=== PATIENT | male | born 1960 | race Caucasian/White ===

== ENCOUNTER 2021-01-18 05:28 | Emergency (ER) | payer OTHER, SELFPAY ==
--- NOTE | ~2021-01-18 | US_ITS ---
US scrotum doppler INDICATION: Testicular pain TECHNIQUE: Testicular sonogram utilizing grayscale and color Doppler FINDINGS: The testes are normal in size and appearance. No focal lesions are seen. The right testes measures 3.9 x 2.8 x 3.2 cm centimeters, and the left testis measures 3.5 x 1.8 x 2.7 cm cm. There is normal vascular flow to both testes. The right and left epididymides appear normal. Small right hydrocele. There is a left varicocele. IMPRESSION: 1. Left varicocele. 2: Small right hydrocele. Reviewed, dictated and finalized at location A.
--- NOTE | ~2021-01-18 | CT_ITS ---
EXAMINATION: CT lumbar spine [facility] EXAM DATE: 01/18/2021 08:28 INDICATION: Back pain. Injury. TECHNIQUE: Spiral CT lumbar spine was performed without contrast. Axial, coronal and sagittal imag es were reviewed. The dose-length product (DLP) for this examination was 1480 mGy-cm (for this and a bdomen and pelvis scan performed at same time). The exposure was tailored according to patient size ( auto mA exposure control), and iterative reconstruction (ASIR) was used as additional dose reduction technique. Comparison is made to prior examination from 01/18/2021. FINDINGS: Congenitally mid lumbar spinal canal. There are no acute fractures identified. No spondylol ysis. There is moderate to severe disc disease at L5-S1 with 2 mm retrolisthesis. There is 4 mm scler otic focus in S1 which is likely bone island. Mild mid lumbar disc disease. No endplate erosive rivers e. No hydronephrosis. Level by level evaluation: T11-12: There is a mild diffuse disc bulge. Facet arthropathy: Minimal. Neural foraminal stenosis: No stenosis. Central canal stenosis: No stenosis. T12-L1: Disc does not extend beyond the endplate margin. Facet arthropathy: None. Neural foraminal stenosis: No stenosis. Central canal stenosis: No stenosis. L1-L2: There is a mild diffuse disc bulge. Facet arthropathy: Mild. Neural foraminal stenosis: No stenosis. Central canal stenosis: Mild. L2-L3: There is a mild diffuse disc bulge. Facet arthropathy: Mild to moderate. Neural foraminal stenosis: Mild bilateral. Central canal stenosis: Mild to moderate, superimposed on congenital. L3-L4: There is a mild diffuse disc bulge. Facet arthropathy: Mild to moderate. Neural foraminal stenosis: Mild to moderate left, mild right. Central canal stenosis: Moderate to severe superimposed on congenital. L4-L5: There is a mild to moderate diffuse disc bulge. Facet arthropathy: Severe left, moderate right. Neural foraminal stenosis: Moderate left, mild to moderate right. Central canal stenosis: Severe. L5-S1: There is a mild diffuse disc bulge. Facet arthropathy: Moderate. Neural foraminal stenosis: Moderate to severe right, moderate left. Central canal stenosis: Moderate superimposed on congenital. 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 No acute findings. Reviewed, dictated and finalized at location B. IMPRESSION: Congenital lumbar central canal stenosis with superimposed spondylo sis causing severe stenosis at L4-5, moderate to severe at L3-4. No acute findi ngs.
--- NOTE | ~2021-01-18 | CT_ITS ---
EXAMINATION: CT abdomen pelvis w con DATE: 01/18/2021 07:27 INDICATION: Low back pain. Groin pressure. TECHNIQUE: Computed tomography (CT) of the abdomen and pelvis was performed with 100 cc Omnipaque 350 intravenous contrast. The dose-length product was 1480.33 mGy-cm. Automated exposure control and ite rative reconstruction technique were employed. COMPARISON: None. FINDINGS: Lung bases are unremarkable. Heart size is normal. No significant pleural or pericardial ef fusion. The liver, spleen, pancreas, adrenal glands and kidneys are unremarkable. Gallbladder is present. Non obstructive bowel gas pattern. No free air or free fluid. Colonic diverticulosis without evidence for diverticulitis. No significant vascular abnormality. No lymphadenopathy. Small fat-containing umbili marilou hernia. Moderate spondylosis at L5-S1. IMPRESSION: 1. No acute abdominal abnormality. Reviewed, dictated and finalized at location A.
[2021-01-18 05:32] VITALS: BP 156/77; PULSE 63; RESP 16; TEMP 36.1; O2SAT 98
--- NOTE | 2021-01-18 05:48 | ED.MALEGU ---
HPI - Male Genitourinary General Chief complaint: Urogenital-Male <Jessica Chua MD - Last Filed: 01/18/21 08:08> Stated complaint: low back/ groin/ abd pain <Jessica Chua MD - Last Filed: 01/18/21 08:08> Time Seen by Provider: 01/18/21 05:47 <Jessica Chua MD - Last Filed: 01/18/21 08:08> Source: patient <Jessica Chua MD - Last Filed: 01/18/21 08:08> Mode of arrival: ambulatory <Jessica Chua MD - Last Filed: 01/18/21 08:08> Limitations: no limitations <Jessica Chua MD - Last Filed: 01/18/21 08:08> History of Present Illness HPI Narrative: Patient is a 60-year-old male with a history of BPH who presents for evaluation of lower groin pain, back pain and difficulty with urination. Patient reports general malaise and chills without fever. He denies nausea, vomiting or upper abdominal pain. He reports urinary hesitancy without dysuria. Patient states he has been compliant with his Flomax. He has a history of pain such as this off and on over the past month. Denies any history of nephrolithiasis. Denies any history of urinary retention. Pain is dull, aching in nature, at times worse with movement. No recent falls or injury. No recent heavy lifting. Patient denies penile pain, he does report mild pressure in his testicles. No discharge or swelling. Patient has a history of lumbar disc disease, states this feels different than his typical back pain. He denies any saddle anesthesia. No urinary incontinence. No focal weakness. <Jessica Chua MD - Last Filed: 01/18/21 08:08> Related Data Home medications: Home Medications Medication Instructions Recorded Confirmed apixaban [Eliquis] mg 01/18/21 atorvastatin 01/18/21 tamsulosin mg PO 01/18/21 <Jessica Chua MD - Last Filed: 01/18/21 08:08> Allergies/Adverse reactions: Allergies Allergy/AdvReac Type Severity Reaction Status Date / Time No Known Allergies Allergy Verified 01/18/21 06:49 <Jessica Chua MD - Last Filed: 01/18/21 08:08> Review of Systems Review of Systems: Narrative: CONSTITUTIONAL: Denies fever, reports chills EYES: Denies visual changes, redness, or discharge. ENT: Denies rhinorrhea, congestion, sore throat, or otalgia. CARDIOVASCULAR: Denies chest pain, palpitations, or edema. RESPIRATORY: Denies cough or dyspnea. GASTROINTESTINAL: Reports groin pain, denies nausea or vomiting GENITOURINARY: Denies dysuria or hematuria. SKIN: Denies rash or itching. MUSCULOSKELETAL: Reports lower back pain NEUROLOGIC: Denies headache, numbness, or weakness. <Jessica Chua MD - Last Filed: 01/18/21 08:08> [facility] Social History Social History: Social History (Updated 01/18/21 @ 05:54 by Jessica Chua MD) Smoking status: Never smoker Alcohol intake: never Substance use: never Living arrangements: with family Gender identity (if verbalized by the patient): Male <Jessica Chua MD - Last Filed: 01/18/21 08:08> Exam Narrative: Exam Narrative: GENERAL: Awake, alert, conversant HEAD: Normocephalic, atraumatic. EYES: PERRLA and EOMI. ENT: Nares clear, no rhinorrhea or epistaxis. Mucous membranes moist. NECK: Supple. CHEST: No respiratory distress, breathing even and non labored HEART: Regular rate, sinus rhythm ABDOMEN: Abdomen is protuberant, mild distention in the lower abdomen with tenderness in the suprapubic area with guarding. No rebound, nonrigid. No fluid wave. No flank tenderness bilaterally. EXTREMITIES: Normal range of motion. No edema. SKIN: Warm, dry, no rash. NEURO:No focal deficits. Alert and oriented x3. Patient is ambulatory with a narrow base, steady gait. <Jessica Chua MD - Last Filed: 01/18/21 08:08> Course Reevaluation(s) Reevaluation #1: Currently patient main complaint is lower back pain which is worse with certain position and movement, better laying down. History of intermittent lower back pain. W
[2021-01-18 06:28] LABS: Add Urine Microscopic? NO; Appearance Urine Clear (Clear); Bilirubin Urine Negative (Negative); Blood Urine Negative (Negative); Color Urine Yellow (Yellow); Glucose Urine UA Negative (Negative); Ketones Urine Negative (Negative); Leukocyte Esterase Ur Negative LEU/UL (Negative); Nitrate Urine Negative (Negative); Protein Urine Negative (Negative); Urobilinogen Urine Negative mg/dL (<2.0)
[2021-01-18] MEDS: SODIUM CHLORIDE 0.9% IV 500 ML 999 ML IV CONT (06:51)
[2021-01-18] MEDS: ONDANSETRON INJ 4 MG/2 ML VIAL IV PUSH ×2 (06:52→09:38)
[2021-01-18] MEDS: MORPHINE SULFATE (*CRX) 4 MG/ML INJ IV PUSH ×2 (06:53→08:10)
[2021-01-18 07:07] LABS: Basophils Percent Auto 0.6 % (0.2-1.2); Eosinophils Absolute Auto 0.2 K/mm3 (0-0.3); Eosinophils Percent Auto 4.6 % (0-4.4); Hematocrit 42.4 % (42.0-52.0); Hemoglobin 14.6 g/dL (14.0-18.0); Immature Granulocyte Absolute 0.02 K/mm3 (0.00-0.031); Immature Granulocyte Percent A 0.4 % (0-0.5); Lymphocytes Absolute Auto 1.25 K/mm3 (0.9-3.2); Lymphocytes Percent Auto 24.9 % (18.3-44.2); Mean Corpuscular HGB Conc 34.4 g/dl (32-36); Mean Corpuscular Hemoglobin 30.9 pg (26-34); Mean Corpuscular Volume 89.6 fl (80-100); Monocytes Absolute Auto 0.5 K/mm3 (0.1-0.6); Monocytes Percent Auto 9.2 % (2.6-8.5); Neutrophils Percent Auto 60.3 % (45.5-73.1); Platelet Count Result 167 k/mm3 (150-375); Red Blood Count 4.73 M/mm3 (4.6-6.20); Red Cell Distribution Width 12.9 % (11.5-14.5)
[2021-01-18 07:15] LABS: Alanine Aminotransferase 19 U/L (4-50); Albumin Level 3.5 g/dL (3.5-5.1); Alkaline Phosphatase 69 U/L (38-126); Anion Gap 6 mmol/L (8-16); Aspartate Amino Transferase 24 U/L (17-59); Bilirubin,Total 0.4 mg/dL (0.2-1.3); Blood Urea Nitrogen 18 mg/dL (9-20); Calcium 8.5 mg/dL (8.4-10.2); Carbon Dioxide 27 mmol/L (22-30); Chloride 108 mmol/L (98-107); Estimated CRCL calculation 85 ml/min; Estimated Glomerular Filt Rate > 60; Glucose 104 mg/dL (65-110); Potassium 4.3 mmol/L (3.4-5.0); Sodium 141 mmol/L (137-145)
[2021-01-18 07:20] LABS: Estimated CRCL calculation 85 ml/min; Estimated Glomerular Filt Rate > 60
[2021-01-18 07:27] VITALS: BP 136/90; PULSE 56; RESP 18; O2SAT 96
[2021-01-18] MEDS: HYDROmorphone HCL INJ (*CRX) 1 MG/ML SYR 0.5 MG IV PUSH (09:38)
[2021-01-18 09:47] VITALS: BP 137/87; PULSE 60; RESP 18; O2SAT 97
== END 2021-01-18 09:47 | disposition home or self-care (01) ==
PROVIDERS: Emergency Medicine; Emergency Provider Emergency Medicine; PCP Internal Medicine
DX: M47.816 Spondylosis without myelopathy or radiculopathy, lumbar region (principal); M48.061 Spinal stenosis, lumbar region without neurogenic claudication; I86.1 Scrotal varices; N43.3 Hydrocele, unspecified
CPT/HCPCS: 36415; 72131; 74177; 76870; 80053; 81003; 85025; 93976; 96361; 96374; 96375; 96376; 99284; J1170; J2270; J2405; J7040; Q9967

== ENCOUNTER 2022-03-31 11:16 | Observation (INO) | payer OTHER, SELFPAY ==
[2022-03-31] VITALS (32 sets, daily range): BP systolic 114–160; BP diastolic 72–94; PULSE 39–65; RESP 10–21; TEMP 36.3–36.6; O2SAT 91–100; BMI 39.7
--- NOTE | ~2022-03-31 | US_ITS ---
EXAMINATION: US carotid duplex BI DATE: 04/01/2022 09:34 INDICATION: Vertigo TECHNIQUE: Grayscale, color Doppler, and pulsed Doppler images of the cervical carotid arteries were obtained. The degree of vessel stenosis is placed in one of the following categories: normal, <50%, 5 0-69%, >=70% but less than near-occlusion, near-occlusion, or total occlusion. Note that percent sten osis relative to normal distal artery lumen diameter is indirectly measured from velocity measurement s as described by Marco, et al. Radiology 2003; 229:340-346. Notes: Normal: Peak systolic velocity <125 centimeters/sec and no plaque <50%. Peak systolic velocity <125 ( EDV <40; ICA/CCA PSV ratio <2.0; used these factors only a tandem lesions or low cardiac output or co ntralateral disease) 50-69 %: PSV 125-230 (EDV 40-100; ratio 2-4) >= 70% but less than near occlusion: PSV greater than 230 (EDV > 100; ratio> 4.0) Near Occlusion: PSV that is variable; markedly narrowed lumen Occlusion: Absent flow on color/spectral Doppler and no lumen on brown scale. COMPARISON: None. FINDINGS: RIGHT: The right common carotid artery (CCA) peak systolic velocity (PSV) is 103 cm/s. The right internal ca rotid artery (ICA) PSV is 85 cm/s. The right ICA end-diastolic velocity (EDV) is 13 cm/s. The right I CA/CCA PSV ratio is 0.8. The external carotid artery (ECA) PSV is 102 cm/s. There is antegrade flow i n the right vertebral artery. LEFT: The left CCA PSV is 118 cm/s. The left ICA PSV is 63 cm/s. The left ICA EDV is 14 cm/s. The left ICA/ CCA PSV ratio is 0.5. The ECA PSV is 80 cm/s. There is antegrade flow in the left vertebral artery. IMPRESSION: 1. Less than 50% stenosis in the right internal carotid artery by sonographic criteria. 2. Less than 50% stenosis in the left internal carotid artery by sonographic criteria. Reviewed, dictated and finalized at location A. IMPRESSION: 1. Less than 50% stenosis in the right internal carotid artery by sonographic josh darling. 2. Less than 50% stenosis in the left internal carotid artery by sonographic amol rankin.
--- NOTE | ~2022-03-31 | XR_ITS ---
EXAMINATION: XR chest 2V DATE: 03/31/2022 12:03 INDICATION: Arm and neck pain TECHNIQUE: AP and lateral views of the chest are obtained. COMPARISON: 07/16/2016 FINDINGS: The lung volumes are low. No pleural effusion or pneumothorax. The cardiomediastinal silhou ette is normal. The visualized bones and soft tissues are unremarkable. IMPRESSION: 1. No acute cardiopulmonary abnormality. Reviewed, dictated and finalized at location A.
--- NOTE | ~2022-03-31 | MR_ITS ---
EXAMINATION: MR cervical spine wo con DATE: 04/01/2022 09:19 INDICATION: Left neck pain. Left-sided headache. TECHNIQUE: Magnetic resonance imaging (MRI) of the cervical spine was performed without intravenous c ontrast. Sequences included sagittal T2-weighted FSE, sagittal T2-weighted FS FSE, sagittal T1-weight ed FSE, axial MERGE, and axial T2-weighted FSE. COMPARISON: None FINDINGS: There is 3 degrees levocurvature of cervicothoracic spine. Vertebral body heights are denisha l. There is mildly decreased disc height at C3-C4 and C4-C5 and severely decreased disc height at C5- C6. The spinal cord demonstrates increased T2-weighted signal intensity from C3-C4 through C5-C6, wor st at C5-C6 where the cord is small, consistent with myelomalacia. The following disc levels are spec ifically discussed: C2-C3: The disc does not extend beyond the endplate margin. There is mild right uncovertebral joint o steoarthritis. There is mild bilateral facet joint osteoarthritis. There is mild right neural foramin al stenosis. There is no central canal stenosis. C3-C4: The disc is bulging with superimposed right central extrusion. There is mild bilateral uncover tebral joint osteoarthritis. There is severe right and mild left facet joint osteoarthritis. There is mild bilateral neural foraminal stenosis. There is mild central canal stenosis with ventral indentat ion of the spinal cord. C4-C5: The disc is bulging. There is moderate bilateral uncovertebral joint osteoarthritis. There is severe bilateral facet joint osteoarthritis. There is mild bilateral neural foraminal stenosis. There is moderate central canal stenosis with ventral and dorsal indentation of the cord. C5-C6: There is a central extrusion. There is severe bilateral uncovertebral joint osteoarthritis. Th ere is mild bilateral facet joint osteoarthritis. There is moderate bilateral neural foraminal stenos is. There is severe central canal stenosis with ventral and dorsal indentation of the cord. C6-C7: The disc is bulging. There is mild right and moderate left uncovertebral joint osteoarthritis. There is severe bilateral facet joint osteoarthritis. There is mild bilateral neural foraminal steno sis. There is mild central canal stenosis. C7-T1: The disc does not extend beyond the endplate margin. There is no uncovertebral joint osteoarth ritis. There is severe bilateral facet joint osteoarthritis. There is mild bilateral neural foraminal stenosis. There is no central canal stenosis. IMPRESSION: 1. Myelomalacia from C3-C4 through C5-C6, worst at C5-C6. 2. Severe cervical spondylosis. Reviewed, dictated and finalized at location E.
--- NOTE | ~2022-03-31 | MR_ITS ---
EXAMINATION: MR brain/brain stem wo con DATE: 04/01/2022 09:19 INDICATION: Vertigo. Headache. TECHNIQUE: Magnetic resonance imaging (MRI) of the brain and brainstem was performed without intraven ous contrast. Sequences included sagittal and axial T1-weighted SE, axial diffusion-weighted FS SE, a xial T2*-weighted GRE, axial T2-weighted FLAIR Propeller, and axial T2-weighted Propeller. Apparent d iffusion coefficient (ADC) maps were created. COMPARISON: No prior studies for comparison. . FINDINGS: No acute hemorrhage, infarction, mass or mass effect. No ventriculomegaly or midline shift. Structures of the posterior fossa including 7/8th cranial nerve complexes are normal. There are scat tered mild periventricular and subcortical white matter changes, most likely related to small vessel ischemic disease (microangiopathy). Paranasal sinuses and mastoids are pneumatized. Orbits are symmetric without disconjugate gaze. Midl ine sagittal images demonstrate a normal corpus callosum and craniovertebral junction. No abnormality of the sella turcica. IMPRESSION: 1: No acute intracranial abnormality. 2: Chronic age-related findings. Reviewed, dictated and finalized at location A.
--- NOTE | 2022-03-31 11:26 | ECG_ITS ---
Measurements Intervals [place] Rate: 46 P: 3 NM: 152 QRS: -16 QRSD: 90 T: 12 QT: 446 QTc: 392 Interpretive Statements SINUS BRADYCARDIA POOR R-WAVE PROGRESSION OTHERWISE NORMAL ECG NO PREVIOUS ECG AVAILABLE FOR COMPARISON Electronically Signed On 03-31-2022 13:51:11 CDT by Tj Davis M.D.
[2022-03-31 11:38] LABS: Basophils Percent Auto 0.7 % (0.2-1.2); Eosinophils Absolute Auto 0.1 K/mm3 (0-0.3); Eosinophils Percent Auto 1.6 % (0-4.4); Hematocrit 44.9 % (42.0-52.0); Hemoglobin 15.1 g/dL (14.0-18.0); Immature Granulocyte Absolute 0.01 K/mm3 (0.00-0.031); Immature Granulocyte Percent A 0.2 % (0-0.5); Lymphocytes Absolute Auto 1.93 K/mm3 (0.9-3.2); Lymphocytes Percent Auto 31.5 % (18.3-44.2); Mean Corpuscular HGB Conc 33.6 g/dl (32-36); Mean Corpuscular Hemoglobin 30.4 pg (26-34); Mean Corpuscular Volume 90.3 fl (80-100); Mean Platelet Volume 9.5 fl (7.4-10.4); Monocytes Absolute Auto 0.5 K/mm3 (0.1-0.6); Monocytes Percent Auto 7.7 % (2.6-8.5); Neutrophils Absolute Auto 3.6 K/mm3 (1.3-6.7); Neutrophils Percent Auto 58.3 % (45.5-73.1); Platelet Count Result 198 k/mm3 (150-375); Red Blood Count 4.97 M/mm3 (4.6-6.20); Red Cell Distribution Width 12.6 % (11.5-14.5); White Blood Count 6.1 K/mm3 (4.5-10.0)
[2022-03-31 11:48] LABS: INR 1.3; Partial Thromboplastin Time 31.5 SECONDS (22.3-36.8); Prothrombin Time 15.8 Seconds (11.1-14.7)
[2022-03-31 12:00] LABS: Alanine Aminotransferase 23 U/L (6-50); Albumin Level 4.3 g/dL (3.5-5.1); Alkaline Phosphatase 75 U/L (38-126); Anion Gap 10 mmol/L (8-16); Aspartate Amino Transferase 33 U/L (17-59); Bilirubin,Total 0.7 mg/dL (0.2-1.3); Blood Urea Nitrogen 16 mg/dL (9-20); Calcium 8.8 mg/dL (8.4-10.2); Carbon Dioxide 28 mmol/L (22-30); Chloride 102 mmol/L (98-107); Estimated CRCL calculation 84 ml/min; Estimated Glomerular Filt Rate > 60; Glucose 91 mg/dL (65-110); Lipase 62 U/L (23-300); Potassium 4.4 mmol/L (3.4-5.0); Sodium 140 mmol/L (137-145)
[2022-03-31 12:11] LABS: Troponin I < 0.012 ng/mL (0.000-0.034)
[2022-03-31 13:54] LABS: SARS-CoV-2 RNA PCR Negative
--- NOTE | 2022-03-31 14:35 | ED.GENADULT ---
HPI - General Adult General Chief complaint: Dizziness Stated complaint: dizziness and neck pain Time Seen by Provider: 03/31/22 11:26 History of Present Illness HPI narrative: 61-year-old male presents for evaluation of lightheadedness presyncope. Patient states that for the past 24 hours he has felt dizzy which worsens with exertion. He has felt this once before and was seen by many doctors but was never given an answer as to what was causing it. Of note patient is noted to be bradycardic on arrival. Related Data Home Medications Medication Instructions Recorded Confirmed apixaban 5 mg tablet (Eliquis) mg 01/18/21 atorvastatin 40 mg tablet 01/18/21 tamsulosin 0.4 mg capsule mg PO 01/18/21 meclizine 25 mg tablet mg 03/31/22 Allergies Allergy/AdvReac Type Severity Reaction Status Date / Time No Known Allergies Allergy Verified 01/18/21 06:49 Review of Systems Review of Systems: CONSTITUTIONAL: Denies fever, chills, or sweats. EYES: Denies visual changes, redness, or discharge. ENT: Denies rhinorrhea, congestion, sore throat, or otalgia. CARDIOVASCULAR: Denies chest pain, palpitations, or edema. RESPIRATORY: Denies cough or dyspnea. GASTROINTESTINAL: Denies abdominal pain, nausea, vomiting, or diarrhea. GENITOURINARY: Denies dysuria or hematuria. SKIN: Denies rash or itching. MUSCULOSKELETAL: Denies back pain, joint pain, or myalgia. NEUROLOGIC: Denies headache, numbness, or weakness. PSYCHIATRIC: Denies anxiety or depression. [facility] Social History Social History (Updated 01/18/21 @ 05:54 by Jessica Chua MD) Smoking status: Never smoker Alcohol intake: never Substance use: never Gender identity (if verbalized by the patient): Male Exam Narrative: GENERAL: Well-appearing, well-nourished, and in no acute distress. HEAD: Normocephalic, atraumatic. EYES: PERRLA and EOMI. ENT: Nares clear, no rhinorrhea or epistaxis. Mucous membranes moist. NECK: Supple. CHEST: Clear to auscultation. No respiratory distress. HEART: Bradycardic rate and rhythm. No murmur heard. Normal peripheral pulses. ABDOMEN: Soft, nontender, nondistended, normal active bowel sounds. EXTREMITIES: Normal range of motion. No edema. SKIN: Warm, dry, no rash. NEURO: No focal deficits. Alert and oriented x3. PSYCH: Normal mood and affect. Course Vital Signs Vital signs: Vital Signs Temperature 97.6 F 03/31/22 11:27 Pulse Rate 47 L 03/31/22 11:27 Respiratory Rate 16 03/31/22 11:27 Pulse Oximetry 99 03/31/22 11:27 Temperature 97.6 F 03/31/22 11:27 Pulse Rate 45 L 03/31/22 14:30 Respiratory Rate 18 03/31/22 14:31 Blood Pressure 128/81 03/31/22 14:31 Pulse Oximetry 99 03/31/22 14:31 Medical Decision Making MDM Narrative Medical decision making narrative: 61-year-old male presents with symptomatic bradycardia. Work-up notable for negative troponin and EKG with no ischemic changes although sinus bradycardia in the 40s throughout the duration of his stay. I have a comprehensive discussion with Jacquie who accepts admission. Vital Signs Vital Signs: Vital Signs Temperature 97.6 F 03/31/22 11:27 Pulse Rate 47 L 03/31/22 11:27 Respiratory Rate 16 03/31/22 11:27 Pulse Oximetry 99 03/31/22 11:27 Temperature 97.6 F 03/31/22 11:27 Pulse Rate 45 L 03/31/22 14:30 Respiratory Rate 18 03/31/22 14:31 Blood Pressure 128/81 03/31/22 14:31 Pulse Oximetry 99 03/31/22 14:31 Lab Data Result diagrams: 03/31/22 11:29 03/31/22 11:29 Labs: Lab Results 03/31/22 03/31/22 03/31/22 Range/Units 11:29 11:29 11:29 WBC 6.1 (4.5-10.0) K/mm3 RBC 4.97 (4.6-6.20) M/mm3 Hgb 15.1 (14.0-18.0) g/dL Hct 44.9 (42.0-52.0) % MCV 90.3 (80-100) fl MCH 30.4 (26-34) pg MCHC 33.6 (32-36) g/dl RDW 12.6 (11.5-14.5) % Plt Count 198 (150-375) k/mm3 MPV 9.5 (7.4-10.4) fl Immature Gran % (Auto) 0.2
[2022-03-31 14:59] LABS: Troponin I < 0.012 ng/mL (0.000-0.034)
--- NOTE | 2022-03-31 15:23 | ADMGEN ---
This patient, Waldo Lakhani, was admitted to IMU Room 213-01. Patient/family oriented to hospital policies and general routines including ID bracelet, bed and alarms, visiting hours, pain management, procedures, bathroom and other care routines, personal items, smoking policy, room service/diet, and visiting hours. Information on how to activate the Rapid Response Team has been discussed. Patient/Family are encouraged to report perceived risks to care and to ask questions if they do not understand what they are told or what they should do.
--- NOTE | 2022-03-31 18:30 | PM.IMHP ---
H&P: HPI History of Present Illness Date/Time: 03/31/22 18:30 Chief Complaint: Dizziness and left arm and neck pain. 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 Over the years he has had issues with intermittent vertigo and in fact was hospitalized at [facility] where he underwent a complete workup. Ultimately he was told he probably had Meniere's disease and he has meclizine at home to use needed. It sounds as though he has frequent episodes of vertigo and many times well getting out of bed in the morning he will have vertigo that seems to dissipate as the day progresses. Over last 24 hours however his vertigo has been pretty persistent and he also pain in the posterior occiput on the left radiating down to the left side of the neck and somewhat into the left shoulder. This has happened before and he has a prescription for methocarbamol as well that he can take however neither of those medications helped today. On arrival to the emergency department he was bradycardic in the upper 40s to low 50s and he was admitted in this setting for further workup and to see if perhaps his symptoms may be related to the bradycardia. However he reports that is baseline heart rate has always been in the mid 50s and this is not a new finding for him. His labs were relatively unremarkable. At the time my evaluation he is resting comfortably however he has reproducible vertigo when going from a supine to seated position and also when moving the head side to side and looking up and down. He denies syncope, visual changes, tinnitus, facial droop, dysarthria, dysphagia, focal weakness, paresthesias, chest pain, sensations of racing heart, and palpitations. Review of Systems Review of Systems: Twelve systems were reviewed. No fever, chills, or sweats. No recent cold or flu symptoms. He is certain that he has sleep apnea as his has noticed periods of apnea and he is ?always exhausted.? It is not unusual for him to have lower leg swelling at the end of the workday, left greater than right from previous blood clots, but the swelling improves by morning. He has bulging discs in the lumbar spine and suffers from right-sided sciatica. Except as documented, all other systems were reviewed and are negative. [facility] Past Medical History Medical History Arthritis Benign prostatic hyperplasia Chronic anticoagulation COVID-19 (08/2020) Deep venous thrombosis Gout Hyperlipidemia Psoriasis Surgical History Surgical History (Updated 03/31/22 @ 18:38 by Mary Monteiro PA-C) History of tonsillectomy Status post left foot surgery For tarsal tunnel syndrome. Family History Family History Father Acute myocardial infarction Hypertension Prostate carcinoma Mother Cerebrovascular accident History of blood clots Diabetes mellitus Hypertension Social History Social History Social History: Surrogate medical decision maker: Daisha Lakhani, spouse. Code status: Full code. Smoking status: Never smoker Alcohol intake: never Substance use: never Substance use type: does not use Spiritual care concerns: Yes Meds Home Medications and Allergies Home Medications Medication Instructions Recorded Confirmed Type apixaban 5 mg tablet (Eliquis) 5 mg PO BID 01/18/21 03/31/22 History atorvastatin 40 mg tablet 40 mg PO 1200 01/18/21 03/31/22 History tamsulosin 0.4 mg capsule 0.4 mg PO HS 01/18/21 03/31/22 History meclizine 25 mg tablet 25 mg PO TID PRN Dizziness 03/31/22 03/31/22 History Allergies Allergy/AdvReac Type Severity Reaction Status Date / Time No Known Aller
[2022-03-31 18:32] LABS: Troponin I < 0.012 ng/mL (0.000-0.034)
[2022-03-31] MEDS: TAMSULOSIN HCL 0.4 MG CAPSULE PO (20:37)
[2022-03-31] MEDS: APIXABAN 5 MG TABLET PO (20:37)
[2022-04-01] VITALS (17 sets, daily range): BP systolic 104–131; BP diastolic 66–80; PULSE 41–74; RESP 16–20; TEMP 36–36.7; O2SAT 94–99
--- NOTE | 2022-04-01 08:43 | PC.NURSE ---
Pt to MRI and US via wheelchair
--- NOTE | 2022-04-01 09:38 | PC.NURSE ---
Pt returned from testing with no issues noted
[2022-04-01] MEDS: APIXABAN 5 MG TABLET PO ×2 (09:51→20:17)
[2022-04-01] MEDS: ATORVASTATIN 40 MG TABLET PO (12:15)
--- NOTE | 2022-04-01 12:37 | PM.IMPN ---
Progress Note: A&P Assessment and Plan (1) Vertigo: Code(s): R42 - Dizziness and giddiness Status: Acute Assessment and Plan: He has had issues with intermittent vertigo over the years and has p.r.n. meclizine. His symptoms have unfortunately been pretty persistent over the past 24 hours which is unusual for him. By history and exam it certainly sounds like benign paroxysmal positional vertigo however the meclizine is not helping and he says it has been a bit more persistent. Brain MRI came back no acute findings but with age related changes. PT OT to see fall precautions Troponin x3 negative TSH normal labs unremarkable Carotid ultrasound less than 50% stenosis in bilateral internal carotid artery Brain MRI no acute intracranial findings chronic age-related findings Cervical MRI with myelomalacia from C3-C4 through C5-C6 worst at C5-C6 with severe cervical spondylosis Will consult Neurosurgery Lumbar CT done 01/12 with lumbar central canal stenosis with superimposed spondylosis causing severe stenosis at L4-L5 moderate to severe at L3-L4 did some injections in the past and physical therapy (2) Bradycardia: Code(s): R00.1 - Bradycardia, unspecified Status: Acute Assessment and Plan: Initially it was thought perhaps his symptoms were related to bradycardia though he has a longstanding history of bradycardia with baseline heart rate in the mid 50s. While asleep his heart rate drops down further and he probably has sleep apnea ApneaLink Echo TSH normal EKG with sinus bradycardia 40s to 50s (3) Hyperlipidemia: Code(s): E78.5 - Hyperlipidemia, unspecified Status: Acute Assessment and Plan: Continue statin; LFTs within normal limits. 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 (5) Benign prostatic hyperplasia: Code(s): N40.0 - Benign prostatic hyperplasia without lower urinary tract symptoms Status: Acute Assessment and Plan: He takes his tamsulosin at nighttime thus unlikely that this is the cause of his vertigo/dizziness. (6) Neck pain on left side: Code(s): M54.2 - Cervicalgia Status: Acute Assessment and Plan: MRI cervical spine ordered due to ongoing symptoms. 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 Over the years he has had issues with intermittent vertigo and in fact was hospitalized at [facility] where he underwent a complete workup.? Ultimately he was told he probably had Meniere's disease and he has meclizine at home to use needed. It sounds as though he has frequent episodes of vertigo and many times well getting out of bed in the morning he will have vertigo that seems to dissipate as the day progresses. Over last 24 hours however his vertigo has been pretty persistent and he also pain in the posterior occiput on the left radiating down to the left side of the neck and somewhat into the left shoulder. This has happened before and he has a prescription for methocarbamol as well that he can take however neither of those medications helped today. On arrival to the emergency department he was bradycardic in the upper 40s to low 50s and he was admitted in this setting for further workup and to see if perhaps his symptoms may be related to the bradycardia. However he reports that is baseline heart rate has always been in the mid 50s and this is not a new finding for him. His labs were relatively unremarkable. At the time my evaluation he is resting comfortably however he anthony
--- NOTE | 2022-04-01 15:41 | WPDNEUROSGCN ---
Assessment and Plan Assessment and plan (1) Cervical spondylosis with myelopathy: Code(s): M47.12 - Other spondylosis with myelopathy, cervical region Status: Acute Plan Mr. Lakhani is a 61-year-old male with history of DVT on Eliquis who was admitted yesterday for workup of intractable dizziness and neck pain. He does have a positive Estrada's reflex and brisk DTRs bilaterally on exam, but he has full strength and no sensory deficits. MRI cervical shows multilevel disc herniations, most impressive at C5-6 with central canal stenosis causing cord-signal changes. While his MRI findings are concerning, this seems to be an incidental finding as he does not have symptoms of radiculopathy or myelopathy at this time. His neck pain is muscular in origin and would benefit from anti-inflammatory and muscle relaxer medications as well as physical therapy. I do not recommend any urgent surgical intervention for his cervical spine at this time, although I would like to follow him closely as an outpatient for this. He also mentioned issues with his lumbar spine that he would like to address in clinic as well. My office will initiate follow up with him. We reviewed his imaging in detail and also discussed symptoms associated with cervical radiculopathy and myelopathy. He and his are in agreement with the plan. Plan: -Recommend scheduled anti-inflammatories and muscle relaxers for neck muscle spasm -Consider physical therapy evaluation for neck pain -Recommend ENT evaluation for dizziness -I will see him as an outpatient to follow his cervical and lumbar disease Review of Systems Review of Systems: 14-point ROS was conducted and was negative aside from above PMFSH Past Medical History Medical History Arthritis Benign prostatic hyperplasia Chronic anticoagulation COVID-19 (08/2020) Deep venous thrombosis Gout Hyperlipidemia Psoriasis Surgical History Surgical History (Updated 03/31/22 @ 18:38 by Mary Monteiro PA-C) History of tonsillectomy Status post left foot surgery For tarsal tunnel syndrome. Family History Family History Father Acute myocardial infarction Hypertension Prostate carcinoma Mother Cerebrovascular accident History of blood clots Diabetes mellitus Hypertension Social History Social History Social History: Surrogate medical decision maker: Daisha Lakhani, spouse. Code status: Full code. Smoking status: Never smoker Alcohol intake: never Substance use: never Substance use type: does not use Spiritual care concerns: Yes Meds Home Medications and Allergies Home Medications Medication Instructions Recorded Confirmed Type apixaban 5 mg tablet (Eliquis) 5 mg PO BID 01/18/21 03/31/22 History atorvastatin 40 mg tablet 40 mg PO 1200 01/18/21 03/31/22 History tamsulosin 0.4 mg capsule 0.4 mg PO HS 01/18/21 03/31/22 History meclizine 25 mg tablet 25 mg PO TID PRN Dizziness 03/31/22 03/31/22 History Allergies Allergy/AdvReac Type Severity Reaction Status Date / Time No Known Allergies Allergy Verified 01/18/21 06:49 Vital Signs Vital Signs - 24 hr 03/31/22 16:00 03/31/22 18:00 03/31/22 20:00 Temperature 36.6 C Pulse Rate 48 L 50 L 50 L Respiratory Rate 16 Blood Pressure 114/72 Pulse Oximetry 99 Oxygen Delivery 03/31/22 20:00 03/31/22 20:00 03/31/22 22:00 Temperature Pulse Rate 51 L 45 L Respiratory Rate Blood Pressure Pulse Oximetry Oxygen Delivery Room Air 04/01/22 00:00 04/01/22 00:00 04/01/22 00:00 Temperature 36.6 C Pulse Rate 43 L 43 L Respiratory Rate 16 Blood Pressure 117/80 Pulse Oximetry 99 Oxygen Delivery Room Air 03/31/22 23:25 04/01/22 02:00 04/01/22 04:00 Temperature Pulse Rate 42 L Respiratory Rate Bloo
--- NOTE | 2022-04-01 16:09 | PC.NURSE ---
This patient, Waldo Lakhani, was transferred to [[id number] ] on 04/01/22 at 1609. Personal belongings sent with patient. Report given to [ HAMIDA Ocampo @ 1600]. Appropriate documentation sent with patient.
--- NOTE | 2022-04-01 16:42 | PC.NURSE ---
This patient, Waldo Lakhani, was received from [[id number] IMU] on 04/01/22 at 1615. Patient/family oriented to unit policies and routines
[2022-04-01] MEDS: CYCLOBENZAPRINE HCL 5 MG TABLET PO (17:13)
[2022-04-01] MEDS: CELECOXIB 200 MG CAPSULE PO (17:35)
[2022-04-01] MEDS: TAMSULOSIN HCL 0.4 MG CAPSULE PO (20:17)
[2022-04-01] MEDS: ACETAMINOPHEN 325 MG TABLET 650 MG PO (21:51)
--- NOTE | 2022-04-01 22:19 | ECHO_ITS ---
Patient Info Name: Waldo Lakhani Age: 61 years : 1960 Gender: Male Ht: 69 in Wt: 269 lbs BSA: 2.49 m2 HR: 44 bpm BP: 122 / 76 mmHg Heart Rhythm: Sinus Rhythm Exam Date: 04/01/2022 8:22 AM Exam Location: [facility] Pulmonary Patient Status: Outpatient Admit Date: 03/31/2022 Staff Ordering Physician: Mary Monteiro PA-C Neuroscientist: Pranav Gaspar RDCS Attending Provider: Chemo Boss MD Referring Physician: Cayetano CARVALHO; Exam Type: CA echo doppler color flow Study Info Indications R00.1 - Bradycardia, unspecified Complete two-dimensional, color flow and Doppler transthoracic echocardiogram is performed. Summary 1. Complete two-dimensional, color flow and Doppler transthoracic echocardiogram is performed. 2. Mildly sclerotic aortic valve which is not stenotic. 3. Otherwise unremarkable echocardiogram. Left Ventricle Left ventricular chamber dimension is normal. Left ventricular systolic function is normal, estimated at 60-65%. The left ventricular diastolic function is normal. Right Ventricle Right ventricular chamber dimension is normal. Left Atria Left atrial chamber dimension is normal. Right Atria Right atrial chamber dimension is normal. Aortic Valve The aortic valve is trileaflet. There is mild aortic valve sclerosis. Pulmonic Valve The pulmonic valve is normal. Mitral Valve The mitral valve has normal leaflets. Tricuspid Valve The tricuspid valve leaflets are normal. Pericardium/Pleural The pericardium appears normal. Aorta The aortic root size at the sinus of Valsalva is normal. Left Ventricular Outflow Tract Name Value Normal LVOT 2D LVOT Diameter 2.2 cm LVOT Doppler LVOT Peak Gradient 5 mmHg LVOT Mean Gradient 3 mmHg LVOT VTI 30 cm LVOT VTI/AV VTI Ratio 1.1 LVOT Stroke Volume 116 ml LVOT CO 6.0 l/min LVOT CI 2.4 l/min/m2 Mitral Valve Name Value Normal MV Doppler MV Peak Gradient 3 mmHg MV Mean Gradient 1 mmHg MV Decel Mellette 305 cm/s2 MV PHT 61 ms MV Area (PHT) 3.6 cm2 4.0-5.0 MV Area (Cont Eq VTI) 4.4 cm2 MV Diastolic Function MV E Peak Velocity 64 cm/s MV A Peak Velocity 49 cm/s MV E/A 1.3 MV Decel Time 209 ms MV Annular TDI
[2022-04-02] VITALS (13 sets, daily range): BP systolic 91–123; BP diastolic 35–84; PULSE 48–66; RESP 14–20; TEMP 35.8–36.5; O2SAT 94–96
[2022-04-02] MEDS: CYCLOBENZAPRINE HCL 5 MG TABLET PO ×3 (00:24→16:52)
--- NOTE | 2022-04-02 02:13 | PC.NURSE ---
This RN has personally reviewed RN-License Pending Hong Cardenas's charting and will be reviewing until the end of this shift.
[2022-04-02] MEDS: CELECOXIB 200 MG CAPSULE PO (08:19)
[2022-04-02] MEDS: APIXABAN 5 MG TABLET PO ×2 (08:19→20:39)
[2022-04-02] MEDS: ATORVASTATIN 40 MG TABLET PO (11:34)
--- NOTE | 2022-04-02 12:07 | PM.IMPN ---
Progress Note: A&P Assessment and Plan (1) Vertigo: Code(s): R42 - Dizziness and giddiness Status: Acute Assessment and Plan: He has had issues with intermittent vertigo over the years and has p.r.n. meclizine. His symptoms have unfortunately been pretty persistent over the past 24 hours which is unusual for him. By history and exam it certainly sounds like benign paroxysmal positional vertigo however the meclizine is not helping and he says it has been a bit more persistent. Brain MRI came back no acute findings but with age related changes. PT OT to see fall precautions Echo unremarkable Troponin x3 negative TSH normal labs unremarkable Carotid ultrasound less than 50% stenosis in bilateral internal carotid artery Brain MRI no acute intracranial findings chronic age-related findings Cervical MRI with myelomalacia from C3-C4 through C5-C6 worst at C5-C6 with severe cervical spondylosis Consulted Neurosurgery. Follow-up with an outpatient basis Lumbar CT done 01/12 with lumbar central canal stenosis with superimposed spondylosis causing severe stenosis at L4-L5 moderate to severe at L3-L4 did some injections in the past and physical therapy Likely BPPV continue vestibular therapy (2) Bradycardia: Code(s): R00.1 - Bradycardia, unspecified Status: Acute Assessment and Plan: Initially it was thought perhaps his symptoms were related to bradycardia though he has a longstanding history of bradycardia with baseline heart rate in the mid 50s. While asleep his heart rate drops down further and he probably has sleep apnea ApneaLink with possible LENARD. Needs sleep study as an outpatient basis Echo unremarkable TSH normal EKG with sinus bradycardia 40s to 50s (3) Hyperlipidemia: Code(s): E78.5 - Hyperlipidemia, unspecified Status: Acute Assessment and Plan: Continue statin; LFTs within normal limits. 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 (5) Benign prostatic hyperplasia: Code(s): N40.0 - Benign prostatic hyperplasia without lower urinary tract symptoms Status: Acute Assessment and Plan: He takes his tamsulosin at nighttime thus unlikely that this is the cause of his vertigo/dizziness. (6) Neck pain on left side: Code(s): M54.2 - Cervicalgia Status: Acute Assessment and Plan: MRI cervical spine reviewed On Flexeril will change to p.r.n. and Celebrex p.r.n. 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 Over the years he has had issues with intermittent vertigo and in fact was hospitalized at [facility] where he underwent a complete workup.? Ultimately he was told he probably had Meniere's disease and he has meclizine at home to use needed. It sounds as though he has frequent episodes of vertigo and many times well getting out of bed in the morning he will have vertigo that seems to dissipate as the day progresses. Over last 24 hours however his vertigo has been pretty persistent and he also pain in the posterior occiput on the left radiating down to the left side of the neck and somewhat into the left shoulder. This has happened before and he has a prescription for methocarbamol as well that he can take however neither of those medications helped today. On arrival to the emergency department he was bradycardic in the upper 40s to low 50s and he was admitted in this setting for further workup and to see if perhaps his symptoms may be related to the bradycardia. However he reports that
--- NOTE | 2022-04-02 12:56 | PCPTNOTE ---
Spoke with pt. Pt would like to be seen by ENT prior to PT treatment. Pt educated on how vestibular therapy should be put on hold unless cleared by Neurosurgeon due to risks with new findings of Cervical spine pathology.
[2022-04-02] MEDS: ACETAMINOPHEN 325 MG TABLET 650 MG PO (15:22)
[2022-04-02] MEDS: TAMSULOSIN HCL 0.4 MG CAPSULE PO (20:39)
[2022-04-03] VITALS (7 sets, daily range): BP systolic 113–128; BP diastolic 75–83; PULSE 47–77; RESP 14–18; TEMP 35.9–36.7; O2SAT 97–98
[2022-04-03] MEDS: CYCLOBENZAPRINE HCL 5 MG TABLET PO (00:58)
[2022-04-03] MEDS: APIXABAN 5 MG TABLET PO (09:17)
[2022-04-03] MEDS: ATORVASTATIN 40 MG TABLET PO (12:35)
--- NOTE | 2022-04-03 14:01 | PM.DS ---
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 meclizine. His symptoms have unfortunately been pretty persistent over the past 24 hours which is unusual for him. By history and exam it certainly sounds like benign paroxysmal positional vertigo however the meclizine is not helping and he says it has been a bit more persistent. Brain MRI came back no acute findings but with age related changes.? PT OT to see fall precautions Echo unremarkable Troponin x3 negative TSH normal ?labs unremarkable Carotid ultrasound less than 50% stenosis in bilateral internal carotid artery Brain MRI no acute intracranial findings chronic age-related findings Cervical MRI with myelomalacia from C3-C4 through C5-C6 worst at C5-C6 with severe cervical spondylosis Consulted Neurosurgery.? Follow-up with an outpatient basis Unrelated to his dizziness likely benign positional vertigo. Continue vestibular therapy He also recently had to work done will follow up with Dentist for this Will give a course of Augmentin and Medrol Dosepak for possible labyrinthitis he is also suggested to take Flonase nasal spray and Claritin regularly . Will also refer to ENT as an outpatient basis follow-up # history of lumbar canal stenosis: Previous Lumbar CT done 01/12 with lumbar central canal stenosis with superimposed spondylosis causing severe stenosis at L4-L5 moderate to severe at L3-L4 did some injections in the past and physical therapy Likely BPPV continue vestibular therapy # bradycardia: Initially it was thought perhaps his symptoms were related to bradycardia though he has a longstanding history of bradycardia with baseline heart rate in the mid 50s. While asleep his heart rate drops down further and he probably has sleep apnea ApneaLink with possible LENARD.? Needs sleep study as an outpatient basis Echo unremarkable TSH normal EKG with sinus bradycardia 40s to 50s # hyperlipidemia: Continue statin; LFTs within normal limits. # chronic anticoagulation: Continue apixaban. # BPH: He takes his tamsulosin at nighttime thus unlikely that this is the cause of his vertigo/dizziness. # neck pain: MRI cervical spine reviewed On [facility] P.r.n. Follow-up with Neurosurgery # possible sleep apnea: Follow-up with sleep specialist as outpatient basis for formal sleep apnea testing Time Spent with Patient Time attestation: Total time spent providing and/or coordinating discharge services: 45 minutes Exam Narrative: General: Well-developed male, in no acute distress. HEENT: PERRL, EOMI. Sclera anicteric. Oral mucosa moist. Oropharynx clear. Neck: Supple. No obvious carotid bruits. Respiratory: Lungs are clear to auscultation bilaterally. No respiratory distress Cardiovascular: Regular rate and rhythm with S1-S2. Gastrointestinal: Abdomen is soft, nontender, and nondistended with positive bowel sounds. Skin: Warm and dry. No rash or lesions on limited exam. Extremities: No cyanosis or clubbing. Trace lower extremity edema bilaterally, left greater than right.
== END 2022-04-03 16:30 | disposition home or self-care (01) ==
LOC: ANHED 12:55 → ANHIMU 14:49 → ANH3MEDSUR 04-01 16:18
PROVIDERS: Physician Assistant; Admitting Provider Chiropractor; Emergency Provider Emergency Medicine; PCP Internal Medicine; Visit Provider Internal Medicine
DX: R42 Dizziness and giddiness (principal); R00.1 Bradycardia, unspecified; M47.812 Spondylosis without myelopathy or radiculopathy, cervical region; M54.2 Cervicalgia; E78.5 Hyperlipidemia, unspecified; N40.0 Benign prostatic hyperplasia without lower urinary tract symptoms; I65.23 Occlusion and stenosis of bilateral carotid arteries; I35.8 Other nonrheumatic aortic valve disorders; M10.9 Gout, unspecified; L40.9 Psoriasis, unspecified; Z86.718 Personal history of other venous thrombosis and embolism; Z79.01 Long term (current) use of anticoagulants; Z20.822 Contact with and (suspected) exposure to COVID-19
CPT/HCPCS: 36415; 70551; 71046; 72141; 80053; 83690; 84443; 84484; 85025; 85610; 85730; 93005; 93306; 93880; 94762; 97162; 99285; A9270; C9803; G0378; U0003; U0005

== ENCOUNTER 2022-06-08 16:36 | Emergency (ER) | payer OTHER, SELFPAY ==
[2022-06-08 16:44] VITALS: BP 136/78; PULSE 58; RESP 18; TEMP 36.5; O2SAT 97
--- NOTE | 2022-06-08 16:56 | ED.LOWEXIN ---
HPI - Extremity Injury (Lower) General Chief Complaint: Extremity Injury, Lower Stated Complaint: Feet Pain Both Time Seen by Provider: 06/08/22 16:56 Source: patient Mode of arrival: ambulatory Limitations: no limitations History of Present Illness HPI Narrative: 62-year-old male presented for complaint of bilateral great toe pain due to toenail fungus worsening for 6 months. He states the left great toenail is loose with occasional clear drainage. Endorses he lost the right toenail about 6 months ago and has grown back. Has not followed with admissions evaluator in over 3 years. Related Data Home Medications Medication Instructions Recorded Confirmed apixaban 5 mg tablet (Eliquis) 5 mg PO BID 01/18/21 05/11/22 atorvastatin 40 mg tablet 40 mg PO 1200 01/18/21 05/11/22 Allergies Allergy/AdvReac Type Severity Reaction Status Date / Time shellfish derived Allergy Unknown Verified 06/08/22 16:56 Review of Systems Review of Systems: CONSTITUTIONAL: Denies body aches, fever, chills, or sweats. EYES: Denies visual changes, redness, or discharge. ENT: Denies rhinorrhea, congestion CARDIOVASCULAR: Denies chest pain, palpitations, or edema. RESPIRATORY: Denies cough or dyspnea. GASTROINTESTINAL: Denies abdominal pain, nausea, vomiting, or diarrhea. SKIN: Reports toenail fungus MUSCULOSKELETAL: Denies back pain, joint pain, or myalgia. NEUROLOGIC: Denies headache, numbness, tingling, or weakness. [facility] Past Medical History Medical History Arthritis Benign prostatic hyperplasia Chronic anticoagulation COVID-19 (08/2020) Deep venous thrombosis Gout Hyperlipidemia Psoriasis Surgical History Surgical History History of tonsillectomy Status post left foot surgery For tarsal tunnel syndrome. Family History Family History Father Acute myocardial infarction Hypertension Prostate carcinoma Mother Cerebrovascular accident History of blood clots Diabetes mellitus Hypertension Social History Social History Social History: Surrogate medical decision maker: Daisha Kar, spouse. Code status: Full code. 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 Please see nursing chart for further information. There is no relevant family history pertinent to the presenting complaint Exam Narrative: GENERAL: Well-appearing HEAD: Normocephalic, atraumatic. EYES: conjunctivae clear, and EOMI. ENT: Mucous membranes moist. Oropharynx without edema, erythema or lesions. NECK: Supple. No lymphadenopathy CHEST: Clear to auscultation. HEART: Regular rate and rhythm. SKIN: Warm, dry. Left great toenail is loose, nail is thick. No redness or purulent drainage, no swelling. Minimally tender with palpation. c/w onychomycosis. Right great toenail thick, intact, no swelling redness or drainage. NEURO: Alert and oriented x3. Course Course Emergency Course: Patient is aware of diagnosis, understands and agrees to treatment plan. Anticipatory guidance given. Patient agrees to follow-up as directed and is aware of reasons to seek care at the emergency department. Portions of this record may have been created with voice recogni
== END 2022-06-08 17:14 | disposition home or self-care (01) ==
PROVIDERS: Emergency Provider Nurse Practitioner Family; PCP Internal Medicine
DX: B35.1 Tinea unguium (principal); M19.90 Unspecified osteoarthritis, unspecified site; N40.0 Benign prostatic hyperplasia without lower urinary tract symptoms; Z79.01 Long term (current) use of anticoagulants; Z86.16 Personal history of COVID-19; Z86.718 Personal history of other venous thrombosis and embolism; M10.9 Gout, unspecified; E78.5 Hyperlipidemia, unspecified; L40.9 Psoriasis, unspecified
CPT/HCPCS: 99212; G0463

== ENCOUNTER 2022-08-01 14:20 | Outpatient (CLI) | payer OTHER, SELFPAY ==
--- NOTE | ~2022-08-01 | MR_ITS ---
EXAMINATION: MR lumbar spine wo con DATE: 08/01/2022 15:25 INDICATION: Low back pain. Bilateral leg numbness. TECHNIQUE: Magnetic resonance imaging (MRI) of the lumbar spine was performed without intravenous con trast. Sequences included sagittal T2-weighted FSE, sagittal T2-weighted FS FSE, sagittal T1-weighted FSE, and axial T2-weighted FSE. COMPARISON: CT lumbar spine 01/18/2021 FINDINGS: There is 4 degrees dextrocurvature of lumbar spine. There is 2 mm anterolisthesis of L4 on L5 and 2 mm retrolisthesis of L5 on S1. Vertebral body heights are normal. There is severely decrease d disc height at L5-S1 with endplate remodeling. Osseous central spinal canal is developmentally smal l in lumbar spine. Epidural lipomatosis is noted. The distal spinal cord signal intensity is normal. The conus medullaris is at L1. There is a fatty filum terminale. The following disc levels are specif ically discussed: L1-L2: The disc does not extend beyond the endplate margin. There is mild bilateral facet joint osteo arthritis. There is no neural foraminal stenosis. There is mild central canal stenosis. L2-L3: The disc is bulging and has an annular fissure. There is moderate bilateral facet joint osteoa rthritis. There is mild bilateral neural foraminal stenosis. There is mild central canal stenosis. L3-L4: The disc is bulging. There is mild bilateral facet joint osteoarthritis. There is mild bilater al neural foraminal stenosis. There is mild central canal stenosis. L4-L5: The disc does not extend beyond the endplate margin. There is severe bilateral facet joint ost eoarthritis. There is mild right and moderate left neural foraminal stenosis. There is moderate centr al canal stenosis. L5-S1: The disc is bulging and has an annular fissure. There is moderate bilateral facet joint osteoa rthritis. There is moderate bilateral neural foraminal stenosis. There is mild central canal stenosis . IMPRESSION: 1. Severe lower lumbar spondylosis. Reviewed, dictated and finalized at location A. 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
== END 2022-08-01 14:21 | disposition home or self-care (01) ==
PROVIDERS: PCP Internal Medicine; Visit Provider Neurological Surgery
DX: M48.061 Spinal stenosis, lumbar region without neurogenic claudication (principal); M47.896 Other spondylosis, lumbar region
CPT/HCPCS: 72148

== ENCOUNTER 2022-08-10 14:36 | Outpatient (CLI) | payer OTHER, SELFPAY ==
--- NOTE | ~2022-08-10 | XR_ITS ---
XR lumbar spine min 4V 08/10/2022 15:03 Indication: Spinal stenosis Procedure: 4 views lumbar spine including flexion/extension views Comparison: No prior studies for comparison. Findings: There is disc narrowing at L4-5 and L5-S1. There is grade 1 spondylolisthesis at L4-5. No a cute fracture or traumatic malalignment. No significant change to lumbar alignment with flexion or ex tension. Sacral foramen are symmetric. Pedicles intact. Impression: 1: Moderate lumbar spondylosis with grade 1 degenerative spondylolisthesis at L4-5. Reviewed, dictated and finalized at location A. Y ATTENDANT Impression: 1: Moderate lumbar spondylosis with grade 1 degenerative spondylolisthesis at L 4-5.
== END 2022-08-10 14:37 | disposition home or self-care (01) ==
PROVIDERS: PCP Internal Medicine; Visit Provider Neurological Surgery
DX: M48.061 Spinal stenosis, lumbar region without neurogenic claudication (principal); M47.896 Other spondylosis, lumbar region
CPT/HCPCS: 72110

== ENCOUNTER 2022-09-14 13:36 | Outpatient (CLI) | payer OTHER, SELFPAY ==
--- NOTE | 2022-09-14 13:57 | ECG_ITS ---
Measurements Intervals [place] Rate: 67 P: -1 PA: 147 QRS: -20 QRSD: 101 T: 5 QT: 395 QTc: 418 Interpretive Statements SINUS RHYTHM BASELINE ARTIFACT- II, III NORMAL ECG COMPARED TO ECG 03/31/2022 11:30:23 SINUS RHYTHM NOW PRESENT Electronically Signed On 09-14-2022 15:52:13 CDT by Alvarado Zhang D.O.
[2022-09-14 15:19] LABS: Basophils Percent Auto 0.6 % (0.2-1.2); Eosinophils Absolute Auto 0.2 K/mm3 (0-0.3); Eosinophils Percent Auto 3.7 % (0-4.4); Hematocrit 45.1 % (42.0-52.0); Hemoglobin 15.5 g/dL (14.0-18.0); Immature Granulocyte Absolute 0.02 K/mm3 (0.00-0.031); Immature Granulocyte Percent A 0.4 % (0-0.5); Lymphocytes Absolute Auto 1.52 K/mm3 (0.9-3.2); Lymphocytes Percent Auto 28.2 % (18.3-44.2); Mean Corpuscular HGB Conc 34.4 g/dl (32-36); Mean Corpuscular Hemoglobin 30.9 pg (26-34); Mean Corpuscular Volume 89.8 fl (80-100); Mean Platelet Volume 10.3 fl (7.4-10.4); Monocytes Absolute Auto 0.5 K/mm3 (0.1-0.6); Monocytes Percent Auto 8.7 % (2.6-8.5); Neutrophils Absolute Auto 3.2 K/mm3 (1.3-6.7); Neutrophils Percent Auto 58.4 % (45.5-73.1); Platelet Count Result 196 k/mm3 (150-375); Red Blood Count 5.02 M/mm3 (4.6-6.20); Red Cell Distribution Width 13.1 % (11.5-14.5); White Blood Count 5.4 K/mm3 (4.5-10.0)
[2022-09-14 15:37] LABS: Anion Gap 9 mmol/L (8-16); Blood Urea Nitrogen 13 mg/dL (9-20); Calcium 8.4 mg/dL (8.4-10.2); Carbon Dioxide 26 mmol/L (22-30); Chloride 106 mmol/L (98-107); Estimated Glomerular Filt Rate > 60; Glucose 102 mg/dL (65-110); Sodium 141 mmol/L (137-145)
== END 2022-09-14 13:37 | disposition home or self-care (01) ==
PROVIDERS: PCP Internal Medicine; Visit Provider Neurological Surgery
DX: M48.062 Spinal stenosis, lumbar region with neurogenic claudication (principal); M48.061 Spinal stenosis, lumbar region without neurogenic claudication; Z01.818 Encounter for other preprocedural examination
CPT/HCPCS: 36415; 80048; 85025; 93005

== ENCOUNTER 2022-10-02 12:06 | Outpatient (CLI) | payer OTHER, SELFPAY ==
[2022-10-02 13:24] LABS: INR 1.2; Prothrombin Time 14.3 Seconds (11.1-14.7)
== END 2022-10-02 12:07 | disposition home or self-care (01) ==
PROVIDERS: PCP Internal Medicine; Visit Provider Neurological Surgery
DX: M48.062 Spinal stenosis, lumbar region with neurogenic claudication (principal); Z01.818 Encounter for other preprocedural examination
CPT/HCPCS: 36415; 85610; 85730; 86850; 86900; 86901

== ENCOUNTER 2022-10-05 19:00 | Observation (INO) | payer OTHER, SELFPAY ==
[2022-09-15 15:29] VITALS: BMI 39.9
--- NOTE | 2022-09-15 15:38 | PC.NURSE ---
Report to the Outpatient Waiting Room, entrance under the green pavilion located off [facility], at time 6:00 on date 09/27/22. Planned Procedure Time: 7:30. Time changes happen often and if your time is changed the preop area will call you the afternoon before. - You and your visitor will be asked to self-screen and do not enter if you have any COVID symptoms. - Only one visitor is requested with a max of two and NO children visitors are allowed at this time. - The patient visitor may be requested to leave or wait in car when not with patient due to distancing restrictions. - A mask is optional within the hospital at this time. Patients may have clear liquids (water, carbonated beverages, clear teas, apple juice) until 3 hours prior to surgery (4:30) with a maximum of 20 ounces. - No food from midnight until time of surgery Take the following medications with a SIP of water the morning of surgery: NONE DO NOT STOP ANY OF YOUR OTHER PRESCRIPTION MEDICATIONS PRIOR TO SURGERY EXCEPT THE FOLLOWING Medications to discontinue per physician: JACINTO Date to take last dose: PER DR. MCDANIEL Please no make-up, nail chinese, hairspray, perfume, deodorant, or body powder the day of surgery. No jewelry (including any body piercings) or valuables the day of surgery, leave them at home. Please take a shower or bath the night before, or the morning of, surgery with an antibacterial soap. Wear comfortable, loose fitting clothing. - Jewelry must be removed prior to entering the operating room. Rings and piercings that are not removed may be cut off. - The hospital will not accept responsibility for valuables. - Please leave all valuables, including medications, at home the day of surgery. If you are going home after surgery, a licensed four horse hitch driver must drive you home. - NO public transportation without another adult if you receive anesthesia. - We recommend that an adult stay with you for 24 hours following discharge. - We also recommend that you do not drive, make important decision, drink alcoholic beverages, or take any drugs that were not prescribed by your health care provider for at least 24 hours after your discharge time. Follow any additional instructions given to you from your surgeon. If you or anyone in your household have experienced Covid symptoms in the past week, please notify your surgeon or the nurse liaison at the phone number below for possible testing. Telephone instructions given to PT - KRISTAN GILES and asked if any additional questions and then verbalized understanding. Patient advised to call surgeon office or pre surgery nurse liaison [phone] if any additional questions.
--- NOTE | 2022-09-27 16:00 | PC.NURSE ---
Spoke w/ patient via phone on 09-27-22. RN verified name, , procedure, and gave new times. Patient plans to come to lab draw station on Sunday, October 02, 2022 for the labs that are already entered in ambulatory orders.
--- NOTE | 2022-09-27 16:03 | PC.NURSE ---
Report to the Outpatient Waiting Room, entrance under the green pavilion located off [facility], at 0900 on 10-04-22. Planned Procedure Time: 1100. Time changes happen often and if your time is changed the preop area will call you the afternoon before. - You and your visitor will be asked to self-screen and do not enter if you have any COVID symptoms. - Only one visitor is requested with a max of two and NO children visitors are allowed at this time. - The patient visitor may be requested to leave or wait in car when not with patient due to distancing restrictions. - A mask is optional within the hospital at this time. Patients may have clear liquids (water, carbonated beverages, clear teas, apple juice) until 3 hours prior to surgery with a maximum of 20 ounces. 0800 - No food from midnight until time of surgery - Infants may have breast milk until 4 hours before surgery, formula 6 hours prior to surgery. - Children will be allowed to drink immediately following surgery. If applicable, please bring a bottle or sippy cup to assist with drinking. Juice, water, soda, and popsicles are readily available. For infants on formula, please bring formula the day of surgery. Pacifiers are allowed. Take the following medications with a SIP of water the morning of surgery: None DO NOT STOP ANY OF YOUR OTHER PRESCRIPTION MEDICATIONS PRIOR TO SURGERY ?EXCEPT THE FOLLOWING Medications to discontinue per physician: Eliquis Date to take last dose: Per Dr. Davenport Please no make-up, nail kittitian, hairspray, perfume, deodorant, or body powder the day of surgery. No jewelry (including any body piercings) or valuables the day of surgery, leave them at home. Please take a shower or bath the night before, or the morning of, surgery with an antibacterial soap. Wear comfortable, loose fitting clothing. Children are encouraged to wear pajamas. - Jewelry must be removed prior to entering the operating room. Rings and piercings that are not removed may be cut off. - The hospital will not accept responsibility for valuables. - Please leave all valuables, including medications, at home the day of surgery. If you are going home after surgery, a licensed wagon driver must drive you home. - NO public transportation without another adult if you receive anesthesia. - We recommend that an adult stay with you for 24 hours following discharge. - We also recommend that you do not drive, make important decision, drink alcoholic beverages, or take any drugs that were not prescribed by your health care provider for at least 24 hours after your discharge time. For Pediatric surgeries, we recommend two adults accompany the child home. Follow any additional instructions given to you from your surgeon. If you or anyone in your household have experienced Covid symptoms in the past week, please notify your surgeon or the nurse liaison at the phone number below for possible testing. Telephone instructions given to Waldo Lakhani and asked if any additional questions and then verbalized understanding. Patient advised to call surgeon office or pre surgery nurse liaison [phone] if any additional questions.
--- NOTE | 2022-10-03 12:28 | PCCCNOTE ---
Late entry: Phone call to Dr. Dumont's office at 1140, spoke with nursing secretary and advised that per pre-reg notes that case was denied and need to follow up with the call or contact centre manager. [employer] Hat Production Supervisor advises that they will need to lawn care professional back. Phone # provided.
--- NOTE | 2022-10-03 14:25 | PCCCNOTE ---
Called to Dr. Dumont's office sw [facility] states that Surgery was approved as OP/OPER # [id number], once she receives the authorization she will load into record.
[2022-10-04] VITALS (14 sets, daily range): BP systolic 99–141; BP diastolic 51–82; PULSE 54–67; RESP 10–20; TEMP 36.2–36.7; O2SAT 94–100; BMI 42.3
--- NOTE | 2022-10-04 09:41 | WPDANESEPPF ---
Anes - Initial Pre Proc Eval Procedure: Operation Date: 10/04/22 11:00 Proposed Procedures p L2-3, L3-4, L4-5 Laminectomies - Karla Davenport MD Date/Time: 10/04/22 09:41 Surgeon: Karla Davenport MD Pre Op Diagnosis: lumbar stenosis, neurogenic claudication Patient Data Age: 62 Gender: M Height: 1.75 m Weight: 122.5 kg Allergies Allergy/AdvReac Type Severity Reaction Status Date / Time shellfish derived Allergy Intermediate Hives/nause Verified 10/04/22 09:22 a Home Medications Medication Instructions Recorded Confirmed Type apixaban 5 mg tablet (Eliquis) 5 mg PO BID 01/18/21 10/04/22 History atorvastatin 40 mg tablet 40 mg PO 1200 01/18/21 10/04/22 History tamsulosin 0.4 mg capsule (Flomax) 0.4 mg PO HS 09/15/22 10/04/22 History Patient hx anesthesia problems: none Family hx anesthesia problems: none Results Review: All pre-operative results and documents have been reviewed as part of the pre-operative evaluation. [facility] Past Medical History Medical History Arthritis Benign prostatic hyperplasia Chronic anticoagulation COVID-19 (08/2020) Deep venous thrombosis Gout Hyperlipidemia Psoriasis Surgical History Surgical History History of tonsillectomy Status post left foot surgery For tarsal tunnel syndrome. Family History Family History Father Acute myocardial infarction Hypertension Prostate carcinoma Mother Cerebrovascular accident History of blood clots Diabetes mellitus Hypertension Social History Social History Social History: Surrogate medical decision maker: Daisha Lakhani, spouse. Code status: Full code. 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 Informed Consent: The patient's anesthetic plan and its attendant risks and benefits were discussed with the patient/family/POA. Questions were solicited and answers provided to the satisfaction of the patient/family/POA.
[2022-10-04] MEDS: LACTATED RINGERS 1,000 ML 30 ML IV CONT ×2 (09:45→13:47)
--- NOTE | 2022-10-04 09:50 | WPDHPUPDATE1 ---
History and Physical Update Update Date/Time: 10/04/22 09:50 History and Physical has been reviewed, including an updated exam of the patient. There are NO changes in the patient's condition. Risks, benefits, and alternatives have been discussed and questions answered. Patient agrees to proceed with procedure.
--- NOTE | 2022-10-04 09:51 | PM.IMHP ---
H&P: HPI History of Present Illness Date/Time: 10/04/22 09:51 Chief Complaint: lower extremity numbness, pain Narrative: Mr. Lakhani is a? 62-year-old male with history of DVT on Eliquis who presents for follow-up of his recent imaging.? His main concern is his lower back and legs.? He has had issues with back pain and particularly numbness in his lower extremities, worse on the right.? About 3 years ago, and he underwent physical therapy and a couple epidural steroid injections at [facility] in [place].? The 1st MECCA helped his symptoms quite a bit,? but he had a 2nd injection was not helpful.? His last injection was a couple years ago.? His biggest concern is numbness involving his entire right leg which can occur any time whether he is active or at rest.? He has more recently started developing numbness throughout his left leg as well.? He has difficulty walking but denies any barbie weakness in the legs or bowel or bladder issues. Since his last visit, feels that his leg symptoms in particular have worsened.? He is essentially constant numbness of the entire right leg has had intermittent but worsening numbness of left leg.? He notices difficulty with standing walking because of this pain numbness.? His back pain is tolerable, and but his legs most concerning Review of Systems Review of Systems: All systems reviewed & are unremarkable except as noted in HPI and below PMFSH Past Medical History Medical History Arthritis Benign prostatic hyperplasia Chronic anticoagulation COVID-19 (08/2020) Deep venous thrombosis Gout Hyperlipidemia Psoriasis Surgical History Surgical History History of tonsillectomy Status post left foot surgery For tarsal tunnel syndrome. Family History Family History Father Acute myocardial infarction Hypertension Prostate carcinoma Mother Cerebrovascular accident History of blood clots Diabetes mellitus Hypertension Social History Social History Social History: Surrogate medical decision maker: Daisha Lakhani, spouse. Code status: Full code. 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 No acute distress. Cooperative with exam. Mental status: -Awake and oriented to person, place, and time. Integumentary: -No obvious skin lesions or masses Motor: -Right lower extremity: iliopsoas 5/5, quadriceps 5/5, hamstrings 5/5, tibialis anterior 5/5, gastroc-soleus 5/5, EHL 5/5 -Left lower extremity: iliopsoas 5/5, quadriceps 5/5, hamstrings 5/5, tibialis anterior 5/5, gastroc-soleus 5/5, EHL 5/5 Sensory: -Intact to light touch throughout -Normal proprioception throughout Reflexes:
[2022-10-04] MEDS: ceFAZolin 3 GM/D5W 100 ML 100 ML IVPB ×2 (10:26→20:06)
[2022-10-04] MEDS: HEMOSTATIC MATRIX (SURGIFLO with THROMBIN) KIT 1 KIT XX (11:28)
[2022-10-04] MEDS: BUPIVACAINE/EPINEPHRINE 0.5% 50 ML VIAL 20 ML INFILTRATE (12:40)
[2022-10-04] MEDS: BACITRACIN OINTMENT 15 GM TUBE 1 APPLIC TOPICAL (12:57)
--- NOTE | 2022-10-04 13:47 | PM.OP ---
Procedure Note - Brief Procedure Note - Brief Date of procedure: 10/04/22 lumbar stenosis, neurogenic claudication Post-op diagnosis: Same Procedure performed: L2, L3, and L4 laminectomies Surgeon: Karla Davenport MD Anesthesia: GETA Findings: Successful lumbar laminectomies without complication. Medium hemovac in place Description of procedure: See op note Implants: None Estimated blood loss (mL): 200 Drains: Yes Packing: No Pathology: None sent Complications: None Condition: Stable Disposition: PACU
[2022-10-04] MEDS: fentaNYL CITRATE INJ (*CRX) 100 MCG/2 ML VIAL 25 MCG IV PUSH ×7 (14:12→14:36)
[2022-10-04] MEDS: oxyCODONE HCL (*CRX) 5 MG TAB IR PO (16:04)
--- NOTE | 2022-10-04 16:14 | P.OP_ITS ---
Procedure Note - Detailed Date of Procedure 10/04/22 Pre-op Diagnosis 1. Lumbar stenosis, neurogenic claudication 2. Morbid obesity (BMI 42) Post-op Diagnosis Same Procedure Performed L2, L3, and L4 laminectomies Surgeon Karla Davenport MD Materials Planner/Production Planner [facility] Anesthesia General Indications Mr. Lakhani is a 62-year-old male with history of back pain and lower extremity numbness, worse on the right, which has worsened in the last 6 months in particular. Imaging revealed signficant central lumbar stenosis at L2-3 and L4-5 with moderate stenosis at L3-4. The patient has failed conservative therapies, and surgical treatment was offered. The risks, benefits, and alternatives as well as reasonable expected outcomes were explained to the patient, and the patient provided written informed consent to proceed. Risks including bleeding, infection, nerve damage, CSF leak, weakness, meningitis, damage to surrounding structures, and failure to alleviate symptoms were discussed. Description of Procedure The patient was brought to the operating room, and general anesthesia was induced. The patient was placed prone on the Bahman frame, and all pressure points were padded. Compression devices were placed on the patient's calves. The skin was cleaned with alcohol. The C-arm was brought onto the field to localize the appropriate disc space and assist with incisional planning. The area was prepped and draped in usual sterile fashion. A time out was conducted, and pre- operative antibiotics were administered. 30cc of 0.5% marcaine with epinephrine was injected into the planned incision. A midline skin incision was made with a 10-blade scalpel, and dissection was carried down with the monopolar cautery to open the fascia. Once the spinous processes were located, a subperiosteal dissection was performed to expose the laminae bilaterally. Due to his body habitus, extra time was required to obtain an adequate exposure. A self-retaining retractor was placed. The C-arm was brought in to confirm the correct level. The high-speed drill was used to create a trough through the lamina bilaterally to the ligamentum flavum. The spinous process and laminae were then elevated, and a Kerrison rongeur was used to disconnect the underlying soft tissue. Remaining lamina was removed with a Leksell and Kerrison rongeurs, and the ligamentum flavum was opened with the Kerrison. The Kerrison was then passed into the foraminae to ensure they were open. A Woodsen was used to verify adequate decompression at the cranial and caudal aspects of the decompression. A medium hemovac drain was placed in the epidural space. Hemostasis was ensured with the bipolar and Surgiflo, and the area was copiously irrigated. No evidence of CSF leak was noted. The muscle was loosely approximated with 0-Vicryl. The fascia was closed with 0-Vicryl in an interrupted fashion. The soft tissue was again copiously irrigated. The dermis was closed with 2-0 and 3-0 interrupted Vicryl. The skin was closed with 3-0 simple running nylon. The drain was sutured into place with a 3-0 nylon as well. Sterile dressings were applied. The patient was returned supine on the stretcher, extubated, and transferred to PACU without incident. Billing codes: 91257, 27431y2 Implants None Estimated Blood Loss -200.0 Drains Yes Pathology None sent Complications None Condition Stable Disposition PACU [facility] Billing Surgery - Charge Forward: Surgery Billing
[2022-10-04] MEDS: SODIUM CHLORIDE 0.9% IV 1,000 ML 100 ML IV CONT (17:34)
[2022-10-04] MEDS: ATORVASTATIN 40 MG TABLET PO (17:36)
--- NOTE | 2022-10-04 17:46 | ADMGEN ---
This patient, Waldo Lakhani, was admitted to Medical Room 255-. Patient/family oriented to hospital policies and general routines including ID bracelet, bed and alarms, visiting hours, pain management, procedures, bathroom and other care routines, personal items, smoking policy, room service/diet, and visiting hours. Information on how to activate the Rapid Response Team has been discussed. Patient/Family are encouraged to report perceived risks to care and to ask questions if they do not understand what they are told or what they should do.
--- NOTE | 2022-10-04 18:36 | PC.NURSE ---
On 10/04/22, the License pending RN Karla, provided care and completed [employer] documentation on this patient. I have reviewed Karla's message clerk and agree with the findings.
[2022-10-04] MEDS: TAMSULOSIN HCL 0.4 MG CAPSULE PO (20:06)
[2022-10-04] MEDS: DOCUSATE SODIUM 100 MG CAPSULE PO (20:06)
[2022-10-04] MEDS: oxyCODONE HCL (*CRX) 5 MG TAB IR 10 MG PO (20:09)
[2022-10-04] MEDS: ACETAMINOPHEN 500 MG TABLET 1000 MG PO (23:13)
[2022-10-04] MEDS: CYCLOBENZAPRINE HCL 10 MG TABLET PO (23:13)
[2022-10-05] VITALS (7 sets, daily range): BP systolic 103–130; BP diastolic 56–92; PULSE 57–75; RESP 15–20; TEMP 35.9–37.4; O2SAT 94–100
--- NOTE | ~2022-10-05 | XR_ITS ---
EXAMINATION: XR fluoroscopy no charge DATE: 10/04/2022 11:00 CDT INDICATION: LUMBAR LAMINECTOMIES . TECHNIQUE: 1 fluoroscopic image of the lateral lumbar spine were obtained during lumbar laminectomy p erformed by the surgeon. I was not present in the operating room. Fluoroscopy exposure time was 11.4 seconds. Air Kerma 8.2358 mGy. DAP 0.1633 mGym2. COMPARISON: 08/10/2022 FINDINGS: A probe identifies the third/fourth interspace, tip projecting over the inferior articulating facet o f L3. Coiled wires and retractors project over the posterior soft tissues. IMPRESSION: Fluoroscopic documentation of lumbar laminectomy. Please refer to the operative note for complete pro cedural details . Reviewed, dictated and finalized at location K. IMPRESSION: Fluoroscopic documentation of lumbar laminectomy. Please refer to the operative note for complete procedural details .
[2022-10-05] MEDS: SODIUM CHLORIDE 0.9% IV 1,000 ML 100 ML IV CONT (02:27)
[2022-10-05] MEDS: oxyCODONE HCL (*CRX) 5 MG TAB IR 10 MG PO ×3 (02:29→20:24)
[2022-10-05] MEDS: ACETAMINOPHEN 500 MG TABLET 1000 MG PO (06:07)
[2022-10-05] MEDS: CYCLOBENZAPRINE HCL 10 MG TABLET PO (06:07)
[2022-10-05] MEDS: oxyCODONE HCL (*CRX) 5 MG TAB IR PO (08:01)
[2022-10-05] MEDS: DOCUSATE SODIUM 100 MG CAPSULE PO ×2 (08:02→20:24)
[2022-10-05] MEDS: ceFAZolin 3 GM/D5W 100 ML 100 ML IVPB (09:04)
--- NOTE | 2022-10-05 09:05 | WPDNEUROSGPN ---
Progress Note: A&P Assessment and Plan (1) Lumbar stenosis with neurogenic claudication: Code(s): M48.062 - Spinal stenosis, lumbar region with neurogenic claudication Status: Acute (2) Status post lumbar laminectomy: Code(s): Z98.890 - Other specified postprocedural states Status: Acute Plan -Change dressing this morning -Will monitor hemovac output during the day today -Will possibly remove drain this evening pending amount of output -Possible discharge this evening if drain able to be removed Subjective Date/time seen: 10/05/22 09:05 Interval history: Had a lot of back pain overnight but feels much better this morning since walking and getting up to the chair. Has not noticed the paresthesias in his legs like he had prior to surgery. Tolerating PO and voiding well HV 190cc out Review of Systems Review of Systems: All systems reviewed & are unremarkable except as noted in HPI and below Exam Narrative: AOX4 Dressing saturated with serosanguinous drainage Full strength in lower extremities Sensation intact to light touch Objective Data Vital Signs Vital Signs: Vital Signs - 24 hr 10/04/22 09:24 10/04/22 13:47 10/04/22 14:00 Temperature 97.2 F L 98.0 F Pulse Rate 54 L 65 67 Respiratory Rate 20 10 L 12 Blood Pressure 133/80 119/72 115/78 Pulse Oximetry 97 99 100 Oxygen Delivery Room Air Simple Face Mask Simple Face Mask Oxygen Flow Rate 8 8 10/04/22 14:15 10/04/22 14:30 10/04/22 14:35 Temperature Pulse Rate 64 65 Respiratory Rate 12 12 Blood Pressure 134/77 141/82 H Pulse Oximetry 100 100 100 Oxygen Delivery Simple Face Mask Simple Face Mask Room Air Oxygen Flow Rate 8 8 10/04/22 14:45 10/04/22 15:00 10/04/22 15:50 Temperature 97.7 F Pulse Rate 66 62 61 Respiratory Rate 20 16 17 Blood Pressure 118/79 122/81 109/64 Pulse Oximetry 97 98 94 Oxygen Delivery Room Air Room Air Oxygen Flow Rate 10/04/22 15:35 10/04/22 16:20 10/04/22 15:30 Temperature 97.3 F L 97.4 F L Pulse Rate 65 65 Respiratory Rate 16 16 Blood Pressure 127/76 102/62 Pulse Oximetry 96 96 Oxygen Delivery Room Air Oxygen Flow Rate 10/04/22 17:20 10/04/22 20:49 10/04/22 20:00 Temperature 97.4 F L 97.1 F L Pulse Rate 66 54 L 54 L Respiratory Rate 16 18 18 Blood Pressure 111/70 99/51 L Pulse Oximetry 96 97 97 Oxygen Delivery Room Air Oxygen Flow Rate 10/05/22 00:27 10/05/22 04:47 10/05/22 07:55 Temperature 98.3 F 98.2 F Pulse Rate 63 62 Respiratory Rate 18 17 Blood Pressure 114/92 H 103/62 Pulse Oximetry 96 94 Oxygen Delivery Room Air Oxygen Flow Rate Intake/Output Intake/Output: Intake & Output 10/02/22 10/03/22 10/04/22 10/05/22 23:59 23:59 23:59 23:59 Intake Total 740 1250 Output Total 990 Balance 740 260 Meds/Results Medications: Active Medications Generic Name Dose Route Start Last Admin Trade Name Freq PRN Reason Stop Dose Admin Acetaminophen 1,000 mg 10/04/22 13:50 10/05/22 06:07 Acetaminophen 500 Mg Tablet PO 1,000 mg Q6H PRN Administration Mild Pain (1-3) Al Hydrox/Mg Hydrox/Simethicone 20 ml 10/04/22 13:49 Mag Hydrox/Al Hydrox/Simeth 30 Ml Udc PO Q4H PRN Indigestion/Heartburn Atorvastatin Calcium 40 mg 10/04/22 15:20 10/04/22 17:36 Atorvastatin 40 Mg Tablet PO 40 mg 1200 SERENITY Administration Bisacodyl 10 mg 10/04/22 13:49 Bisacodyl 10 Mg Suppository RECTAL DAILY PRN Constipation Cyclobenzaprine HCl 10 mg 10/04/22 13:50 10/05/22 06:07 Cyclobenzaprine Hcl 10 Mg Tablet PO 10 mg TID PRN Administration Muscle Spasms Docusate Sodium 100 mg 10/04/22 21:00 10/05/22 08:02 Docusate Sodium 100 Mg Capsule PO 100 mg Q12HR SERENITY Administration Cefazolin Sodium 100 mls @ 200 mls/hr 10/04/22 21:00 10/04/22 20:40 Ancef 3 Gm/D5w 100 Ml IVPB 10/05/22 20:59 Infused Q12H SERENITY Infusion Sodium Chloride 1,000 mls @ 100 ml
[2022-10-05] MEDS: ATORVASTATIN 40 MG TABLET PO (11:26)
--- NOTE | 2022-10-05 12:32 | PC.NURSE ---
On 10/05/22, the student, [Alejandro Schumacher], provided care and completed [facility] documentation on this patient. I have reviewed the student's documentation and agree with the findings.
--- NOTE | 2022-10-05 14:16 | PC.NURSE ---
On 10/05/22, the student, [Shira Weinberg], provided care and completed [facility] documentation on this patient. I have reviewed the student's documentation and agree with the findings.
[2022-10-05] MEDS: TAMSULOSIN HCL 0.4 MG CAPSULE PO (20:24)
[2022-10-06] MEDS: oxyCODONE HCL (*CRX) 5 MG TAB IR PO ×3 (00:52→12:24)
[2022-10-06] MEDS: oxyCODONE HCL (*CRX) 5 MG TAB IR 10 MG PO (02:48)
[2022-10-06 03:58] VITALS: BP 123/70; PULSE 73; RESP 20; TEMP 37.4; O2SAT 95
[2022-10-06] MEDS: CYCLOBENZAPRINE HCL 10 MG TABLET PO ×2 (06:55→11:39)
[2022-10-06] MEDS: DOCUSATE SODIUM 100 MG CAPSULE PO (09:02)
[2022-10-06] MEDS: ACETAMINOPHEN 500 MG TABLET 1000 MG PO (11:38)
[2022-10-06] MEDS: ATORVASTATIN 40 MG TABLET PO (11:39)
[2022-10-06 14:00] VITALS: BP 134/61; PULSE 69; RESP 16; TEMP 36.7; O2SAT 96
--- NOTE | 2022-10-16 19:25 | PM.DS ---
DS: Admitting Diagnosis Discharge Date 10/06/22 Admitting Diagnosis Lumbar stenosis with neurogenic claudication DS: Discharge Diagnosis Discharge Diagnosis (1) Status post lumbar laminectomy: Code(s): Z98.890 - Other specified postprocedural states Status: Acute (2) Lumbar stenosis with neurogenic claudication: Code(s): M48.062 - Spinal stenosis, lumbar region with neurogenic claudication Status: Acute DS: Summary Hospital Course Hospital Course: Mr. Lakhani underwent multi-level lumbar laminectomies on October 04; please see the op note for more details. He was transferred to the floor after surgery. He mobilized with PT/OT well and was cleared for discharge home. He had fluctuating levels of back pain that were ultimately controlled with medication. His epidural drain was removed on the evening of POD1. He was tolerating diet and ambulating and voiding well. He was determined ready for discharge home on POD2. Status at Discharge Functional status at discharge: independent ambulation Overall status at discharge: patient is progressing back to baseline Time Spent with Patient Time attestation: Total time spent providing and/or coordinating discharge services: Time spent: Less than 30 minutes Exam Const: Other: AOx4 Full strength in lower extremities Sensation intact to light touch Incision c/d/i with sutures in place Discharge Plan Discharge Attending physician on discharge: Karla Davenport Consulting providers: Guru Valderrama ; Lan Isaacs Discharging Clinician: Karla Davenport Anticipated Discharge Date/Time: 10/06/22 13:51 Patient Disposition: Home, Self-Care Activity: may shower Diet: as tolerated Wound Care Instructions: follow printed instructions and incision open to air Discharge Instructions: Discharge Instructions Procedure: Lumbar laminectomy Your doctor has partially removed one or more laminae from your back (lumbar spine), to remove pressure from the nerve roots. Here are some instructions to follow upon discharge from the hospital to help in your recovery. Wound Care: You may shower and get your incision wet starting on post-operative day 2. You may leave your incision open to air. You may use soap and water to clean your incision. Lightly dab the incision dry. Do not apply any ointments, creams, or lotions to the incision. Do not take baths or sit in a hot tub or pool for 4 weeks. If you have stitches in place, these will be removed at your first post-operative appointment in 2 weeks. Activity: Until released by your doctor, you should not return to work. You should rest at home and let your body heal. Taking short walks is encouraged, but avoid strenuous exercise. Do not jog, run, bicycle, lift weights, or participate in any other exercises unless specifically allowed by your doctor. Most importantly, avoid lifting objects heavier than about 10 lbs (or carton of milk) as this places a strain on your back. Avoid twisting and bending motions. Avoid prolonged sitting. Where possible, avoid household activities that involve lifting and/or bending such as laundry, grocery shopping, and childcare. Try to arrange for help from friends and family for these activities while your back heals. You should not drive for a few days and must be off pain medications prior to driving. DO NOT SMOKE TOBACCO. Smoking has been proven to interfere with the normal healing of the bones in your back. Smoking will dramatically reduce the success rate of your surgery. Your doctor can prescribe a patch to help you stop smoking if you would like. Diet: You can return to your usual diet, unless instructed otherwise by your doctor. Medications: You should resume taking all of your normal medications, unless instructed otherwise by your doctor. If you have questions about your normal medications (those prescribed for high blood pressure, for
== END 2022-10-06 15:50 | disposition home or self-care (01) ==
PROVIDERS: Admitting Provider Neurological Surgery; PCP Internal Medicine; Visit Provider Neurological Surgery
PROC: (CPT 63005; principal; 2022-10-04 11:00)
DX: M48.062 Spinal stenosis, lumbar region with neurogenic claudication (principal); M19.90 Unspecified osteoarthritis, unspecified site; N40.0 Benign prostatic hyperplasia without lower urinary tract symptoms; Z86.16 Personal history of COVID-19; Z86.718 Personal history of other venous thrombosis and embolism; M10.9 Gout, unspecified; E78.5 Hyperlipidemia, unspecified; L40.9 Psoriasis, unspecified; F10.90 Alcohol use, unspecified, uncomplicated; Z79.01 Long term (current) use of anticoagulants; Z79.899 Other long term (current) drug therapy
CPT/HCPCS: 63047; 63048 ×2; 36415; 80048; 85025; 85610; 85730; 86850; 86900; 86901; 93005; 97161; 97165; 97530; 97535; 99199; A9270; G0378; J0330; J0690; J1100; J1170; J2250; J2405; J2704; J2710; J3010; J7030; J7120

== ENCOUNTER 2023-09-29 12:24 | Emergency (ER) | payer OTHER, SELFPAY ==
--- NOTE | 2023-09-29 12:31 | ED.SKABFB ---
HPI - Skin/Abscess/Foreign Bdy General Chief complaint: Skin/Abscess/Foreign Body Stated complaint: Rash Time Seen by Provider: 09/29/23 12:35 Source: patient Mode of arrival: ambulatory Limitations: no limitations History of Present Illness HPI narrative: Waldo is a 63-year-old male patient presenting to the clinic today with complaints of rash to the left side of his back. He reports the rash is itchy and somewhat painful. First noticed the rash yesterday while he was at the gym. She is shingles in the past. Related Data Home Medications Medication Instructions Recorded Confirmed atorvastatin 40 mg tablet 40 mg PO DAILY 01/18/21 09/29/23 tamsulosin 0.4 mg capsule (Flomax) 0.4 mg PO HS 09/15/22 09/29/23 apixaban 5 mg tablet (Eliquis) 5 mg PO DAILY 09/29/23 09/29/23 Allergies Allergy/AdvReac Type Severity Reaction Status Date / Time shellfish derived Allergy Intermediate Hives/nause Verified 09/29/23 12:27 a Review of Systems Review of Systems: Pertinent positives per HPI. Patient denies any fever, chills, headache, visual changes, dizziness, cough, runny nose, sore throat, shortness of breath, chest pain, palpitations, nausea, vomiting, diarrhea, constipation, abdominal pain, or any urinary issues. [facility] Past Medical History Medical History Arthritis Benign prostatic hyperplasia Chronic anticoagulation COVID-19 (08/2020) Deep venous thrombosis Gout Hyperlipidemia Psoriasis Surgical History Surgical History History of tonsillectomy Status post left foot surgery For tarsal tunnel syndrome. Family History Family History Father Acute myocardial infarction Hypertension Prostate carcinoma Mother Cerebrovascular accident History of blood clots Diabetes mellitus Hypertension Social History Social History Social History: Surrogate medical decision maker: Daisha Lakhani, spouse. Code status: Full code. Smoking status: Never smoker Alcohol intake: current Drinks per week: 5 Substance use: never Substance use type: does not use Lack of Transportation: No Lack of Food: Never True Current Housing: I Have Housing Concerned About Future Housing: No Difficulty Paying Gas/Electric Bills: No Difficulty Paying for Meds: No Currently Unemployed: No Education: Associate Degree Difficulty w/ Childcare or Family Care: No Living arrangements: with family Occupation/Education: occupation Additional occupation/education comments: [employer] B[employer] at [employer] care concerns: No Comments At the time of my signature, I reviewed and agree with the nursing past medical, surgical, social, and family history. There is no relevant family history pertinent to the patient complaint. Exam Narrative: General: Well-developed, well nourished, in no apparent distress Head: Normocephalic, atraumatic. Cardio: Regular rate and rhythm, s1 and s2 normal, no murmur appreciated. Resp: Clear to auscultation bilaterally, no rhonchi, rales, wheezing or rubs. Integumentary: Dumont, warm, and dry, red raised rash with erythemic base and vesicular lesions to the left lower back-follows the dermatome does not cross the midline. Course Course Emergency Course: Portions of this record may have been created with voice recognition software. Level of Care: Express Care Visit Vital Signs Vital signs: Vital signs reviewed MDM - Skin/Abscess/Foreign Bdy MDM Narrative Medical decision making narrative: At the time of visit patient is resting comfortably on the exam table. Patient appears to be nontoxic. Plan: I suspect patient has herpes zoster. Prescription for acyclovir was sent to the pharmacy. Supportive measures were discussed with
[2023-09-29 12:34] VITALS: BP 149/99; PULSE 81; RESP 16; TEMP 37; O2SAT 99
== END 2023-09-29 12:59 | disposition home or self-care (01) ==
PROVIDERS: Emergency Provider Nurse Practitioner Family; PCP Internal Medicine
DX: B02.9 Zoster without complications (principal); M19.90 Unspecified osteoarthritis, unspecified site; N40.0 Benign prostatic hyperplasia without lower urinary tract symptoms; M10.9 Gout, unspecified; E78.5 Hyperlipidemia, unspecified; L40.9 Psoriasis, unspecified; Z86.16 Personal history of COVID-19; Z86.718 Personal history of other venous thrombosis and embolism; Z79.01 Long term (current) use of anticoagulants
CPT/HCPCS: 99213; G0463

== ENCOUNTER 2024-04-02 13:37 | Outpatient (CLI) | payer OTHER, SELFPAY ==
--- NOTE | ~2024-04-02 | MR_ITS ---
EXAMINATION: MR cervical spine wo con DATE: 04/02/2024 14:06 INDICATION: Disease of spinal cord, unspecified. TECHNIQUE: Magnetic resonance imaging (MRI) of the cervical spine was performed without intravenous c ontrast. COMPARISON: Cervical spine MRI 04/01/2022 FINDINGS: Bone alignment is normal. There is mild chronic anterior wedging of T1 and T2 vertebral bod ies. There is mildly decreased disc height at C4-C5 and moderately decreased disc height at C5-C6. Th ere is increased T2-weighted signal intensity in the spinal cord at C5-C6 centered at the brown matter with volume loss, consistent with myelomalacia. The following disc levels are specifically discussed : C2-C3: The disc does not extend beyond the endplate margin. There is mild right uncovertebral joint o steoarthritis. There is mild right and severe left facet joint osteoarthritis. There is mild bilatera l neural foraminal stenosis. There is no central canal stenosis. C3-C4: There is a central protrusion. There is mild bilateral uncovertebral joint osteoarthritis. The re is severe bilateral facet joint osteoarthritis. There is mild bilateral neural foraminal stenosis. There is moderate central canal stenosis with ventral and dorsal indentation of the spinal cord. C4-C5: The disc is bulging with superimposed right central extrusion. There is mild bilateral uncover tebral joint osteoarthritis. There is moderate and severe left facet joint osteoarthritis. There is m oderate bilateral neural foraminal stenosis. There is moderate central canal stenosis with central an d dorsal indentation of the spinal cord. C5-C6: The disc is bulging. There is severe bilateral uncovertebral joint osteoarthritis. There is mi ld bilateral facet joint osteoarthritis. There is moderate bilateral neural foraminal stenosis. There is moderate central canal stenosis. C6-C7: There is a central extrusion. There is moderate left uncovertebral joint osteoarthritis. There is severe bilateral facet joint osteoarthritis. There is mild right and moderate left neural foramin al stenosis. There is mild central canal stenosis. C7-T1: The disc does not extend beyond the endplate margin. There is no uncovertebral joint osteoarth ritis. There is severe bilateral facet joint osteoarthritis. There is mild bilateral neural foraminal stenosis. There is no central canal stenosis. IMPRESSION: 1. Myelomalacia at C5-C6. 2. Severe cervical spondylosis, stable from 04/01/2022. Reviewed, dictated and finalized at location A.
== END 2024-04-02 13:38 | disposition home or self-care (01) ==
LOC: ANHIMG 13:38
PROVIDERS: PCP Internal Medicine; Visit Provider Neurological Surgery
DX: G95.89 Other specified diseases of spinal cord (principal); M47.812 Spondylosis without myelopathy or radiculopathy, cervical region
CPT/HCPCS: 72141

== ENCOUNTER 2024-06-03 13:39 | Outpatient (CLI) | payer OTHER, SELFPAY ==
--- NOTE | 2024-06-03 15:00 | NEURO_ITS ---
Impression: # Complains of numbness of hands. ? # Bilateral moderate Carpal Tunnel Syndrome. ? # No ulnar neuropathy. ? # Needle/EMG exam mildly abnormal in APB. Nerve Conduction Studies Anti Sensory Summary Table ?Stim Site NR Peak (ms) P-T Amp (?V) Site1 Site2 Delta-P (ms) Dist (cm) Ermias (m/s) Left Median Anti Sensory (2-3nd Digit) Wrist ? 3.6 38.7 Wrist 2-3nd Digit 3.6 14.0 39 Wrist ? 3.6 27.7 Wrist 2-3nd Digit 3.6 14.0 39 Right Median Anti Sensory (2-3nd Digit) Wrist ? 4.4 13.6 Wrist 2-3nd Digit 4.4 14.0 32 Wrist ? 4.2 14.7 Wrist 2-3nd Digit 4.4 14.0 32 Left Radial Anti Sensory (Base 1st Digit) Wrist ? 1.9 22.9 Wrist Base 1st Digit 1.9 0.0 Right Radial Anti Sensory (Base 1st Digit) Wrist ? 2.2 33.4 Wrist Base 1st Digit 2.2 0.0 Left Ulnar Anti Sensory (5th Digit) Wrist ? 2.4 21.8 Wrist 5th Digit 2.4 14.0 58 Right Ulnar Anti Sensory (5th Digit) Wrist ? 2.4 36.4 Wrist 5th Digit 2.4 14.0 58 Motor Summary Table ?Stim Site NR Onset (ms) O-P Amp (mV) Site1 Site2 Delta-0 (ms) Dist (cm) Ermias (m/s) Left Median Motor (Abd Poll Brev) Wrist ? 5.3 1.4 Elbow Wrist 4.6 26.0 57 Elbow ? 9.9 1.4 Right Median Motor (Abd Poll Brev) Wrist ? 4.8 4.0 Elbow Wrist 4.3 26.0 60 Elbow ? 9.1 4.2 Left Ulnar Motor (Abd Dig Minimi) Wrist ? 2.3 6.4 A Elbow Wrist 4.7 28.0 60 A Elbow ? 7.0 5.0 Right Ulnar Motor (Abd Dig Minimi) Wrist ? 2.5 4.6 A Elbow Wrist 4.8 28.0 58 A Elbow ? 7.3 3.3 F Wave Studies ?NR F-Lat (ms) L-R F-Lat (ms) Left Median (Mrkrs) (Abd Poll Brev) ? 30.06 0.76 Right Median (Mrkrs) (Abd Poll Brev) ? 30.82 0.76 Left Ulnar (Mrkrs) (Abd Dig Min) ? 28.05 1.50 Right Ulnar (Mrkrs) (Abd Dig Min) ? 29.55 1.50 EMG ?Side Muscle Nerve Root Ins Act Fibs Amp Dur Recrt Comment Right 1stDorInt Ulnar C8-T1 Nml Nml Nml Nml Nml Right Ext Indicis Radial (Post Int) C7-8 Nml Nml Nml Nml Nml Right Ext Digitorum Radial (Post Int) C7-8 Nml Nml Nml Nml Nml Right BrachioRad Radial C5-6 Nml Nml Nml Nml Nml Right PronatorTeres Median C6-7 Nml Nml Nml Nml Nml Right Abd Poll Brev Median C8-T1 Nml Nml Nml >12ms Nml Right ABD Dig Min Ulnar C8-T1 Nml Nml Nml Nml Nml Left 1stDorInt Ulnar C8-T1 Nml Nml Nml Nml Nml Left Ext Indicis Radial (Post Int) C7-8 Nml Nml Nml Nml Nml Left Ext Digitorum Radial (Post Int) C7-8 Nml Nml Nml Nml Nml Left BrachioRad Radial C5-6 Nml Nml Nml Nml Nml Left PronatorTeres Median C6-7 Nml Nml Nml Nml Nml Left Abd Poll Brev Median C8-T1 Nml Nml Nml >12ms Nml Left ABD Dig Min Ulnar C8-T1 Nml Nml Nml Nml Nml MTDD
== END 2024-06-03 13:40 | disposition home or self-care (01) ==
PROVIDERS: PCP Internal Medicine; Visit Provider Neurological Surgery
DX: G56.03 Carpal tunnel syndrome, bilateral upper limbs (principal)
CPT/HCPCS: 95886; 95911

== ENCOUNTER 2024-07-24 12:31 | Outpatient (CLI) | payer OTHER, SELFPAY ==
--- NOTE | ~2024-07-24 | XR_ITS ---
EXAMINATION: XR cervical spine 4-5V DATE: 07/24/2024 13:01 INDICATION: Radiculopathy, cervical region. TECHNIQUE: 6 views of cervical spine including flexion and extension views were obtained. COMPARISON: Cervical spine MRI 04/02/24 FINDINGS: There is 6 degrees levocurvature of cervical spine. There is no abnormal motion on flexion or extension. Vertebral body heights are normal. There is severely decreased disc height at C5-C6. At C5-C6, there is severe right uncovertebral joint osteoarthritis. There is multilevel facet joint ost eoarthritis severe at C6-C7 and C7-T1. The osseous central spinal canal is developmentally small. The re is moderate central canal stenosis at C5-C6. No prevertebral soft tissue swelling. IMPRESSION: 1. Severe cervical spondylosis. Reviewed, dictated and finalized at location A. LING TECH
--- OUTSIDE RECORDS SUMMARY | 2024-07-24 13:17 | XMS_ITS | Encounter Summary ---
Author Organization [facility] Address [address] [place] [address] Phone Care Team Providers Care Data Transcriber Name Role Phone Tj Duncan MD Primary Care Provider [phone] Ct, [facility] Unavailable Sylvia vailable Nasir Santos MD Unavailable Reason for Visit * Reason Comments Medication Refill Encounter Details Date Type Department Care Team (Late st Contact Info) Description 08/05/2022 Refill [facility] [address] [place] [address] Tj Duncan MD #[address] [address] Medication Refill Social History Tobacco Use Types Packs/Day Years Used Date Smoking Tobacco: Never Smokeless Tobacco: Never Alcohol Use Standard Drinks/Week Comments Yes 8 (1 standard drink = 0.6 oz pur e alcohol) PHQ-2 Answer Date Recorded Total Score - Questions 1-9 0 05/26 Sexually Active Control Partners Comments Yes Female Sex and Gender Information Value Date Recorded Sex Assigned at Not on file Legal Sex Male 11:52 PM CDT Gender Identity Not on file Sexual Orientation Not on file documented as of this encounter Miscellaneous Notes * Telephone Encounter - Parris Miranda RN - 08/07/2022 9:53 AM CST Medication failed the protocol, provider to review and approve the medication order if appropriate. Requested Prescriptions Pending Prescriptions Disp Refills atorvastatin (LIPITOR) 40 MG Tablet [Pharmacy Med Name: ATORVASTATIN 40 MG TABLET] 90 Tablet 1 Sig: TAKE 1 TABLET BY MOUTH EVERY DAY Hmg CoA Reductase Inhibitors Protocol Failed - 08/05/2022 5:23 PM Failed - Lipid panel in past 12 months LDL Date Value Ref Range Status 06/23/2022 145 (A) 0 - 130 mg/dL Final Passed - Visit with relevant provider in past 12 months or upcoming 90 days Recent Visits Date Type Provider Dept 06/22/22 Office Visit Tj Duncan MD [facility] 04/11/22 Office Visit Tj Duncan MD [facility] 12/15/21 Office Visit Tj Duncan MD [facility] 09/06/21 Office Visit Aidan Canales APRN, [facility] 08/22/21 [facility] Showing recent visits within past 365 days and meeting all other requirements Future Appointments No visits were found meeting these conditions. Showing future appointments within next 90 days and meeting all other requirements OMER SERVICE REP documented in this encounter Plan of Treatment Upcoming Encounters Date Type Department Care Team (Late st Contact Info) Description 10/27/2024 8:15 AM CDT Office Visit [facility] - Family Medicine - [place] [address] [place] [address] Tj Duncan MD [id number] [address] documented as of this encounter Visit Diagnoses Not on filedocumented in this encounter Additional Health Concerns Infection Onset Date Last Indicated Resolved Time C. difficile Rule-Out 11/02/2022 11/02/20222022 1:14 PM CDT Assessment Noted Time PHQ-9 Depression Total Score: 0 06/22/20 3:00 PM CUSTOMER SERVICE REP documented as of this encounter Care Teams Data Transcriber Relationship Specialty Start Date End Date Tj Duncan MD #2 [facility] [address] [place] [address] PCP - General Family Medicine 05/17/15 Ct, [facility] [place] 08/19/20 Nasir Santos MD #2 [facility] [address] [place] [address] Consulting Physician Colon and Rectal Surgery 01/14/24 documented as of this encounter
--- OUTSIDE RECORDS SUMMARY | 2024-07-24 13:17 | XMS_ITS | Encounter Summary ---
Author Organization [facility] Address [address] [place] [address] Phone Care Team Providers Care Cad Draftsman Name Role Phone Tj Duncan MD Primary Care Provider [phone] Ct, [facility] Home [facility] Unavailable Sylvia vailable Nasir Santos MD Unavailable Reason for Visit * Reason Comments Medication Refill Encounter Details Date Type Department Care Team (Late st Contact Info) Description 01/19/2020 [facility]ill [facility] [address] [place] [address] Tj Duncan MD #[address] [address] Medication Refill Social History Tobacco Use Types Packs/Day Years Used Date Smoking Tobacco: Never Smokeless Tobacco: Never Alcohol Use Standard Drinks/Week Comments Yes 8 (1 standard drink = 0.6 oz pur e alcohol) PHQ-2 Answer Date Recorded PHQ-2 Score 0 03/11/2019 Sexually Active Control Partners Comments Yes Female Sex and Gender Information Value Date Recorded Sex Assigned at Not on file Legal Sex Male 11:52 PM CDT Gender Identity Not on file Sexual Orientation Not on file documented as of this encounter Miscellaneous Notes * Telephone Encounter - Nell Klein RN - 01/22/2020 10:05 AM CDT Request for jorden refused. Medication was authorized on 01-15-20 for #[id number]. Pharmacy notified via NCLC. documented in this encounter Plan of Treatment Upcoming Encounters Date Type Department Care Team (Late st Contact Info) Description 10/27/2024 8:15 AM CDT Office Visit [facility] [address] [place] [address] Tj Duncan MD #[address] [address] documented as of this encounter Visit Diagnoses Diagnosis Deep vein thrombophlebitis of left leg (HCC) Phlebitis and thrombophlebitis of other deep vessels of lower extremities documented in this encounter Additional Health Concerns Infection Onset Date Last Indicated Resolved Time COVID - 19 Confirmed 08/15/2020 08/19/2020 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 difficile Rule-Out 11/02/2022 11/02/20222022 1:14 PM CDT Assessment Noted Time PHQ-9 Depression Total Score: 0 10/23/19 19 5:00 PM CDT documented as of this encounter Care Teams Cad Draftsman Relationship Specialty Start Date End Date Tj Duncan MD #[address] [address] PCP - General Family Medicine 05/17/15 Ct, [facility] [place] 08/19/20 Nasir Santos MD #[address] [address] Consulting Physician Colon and Rectal Surgery 01/14/24 documented as of this encounter
--- OUTSIDE RECORDS SUMMARY | 2024-07-24 13:17 | XMS_ITS | Encounter Summary ---
Author Organization [facility] Address [address] [place] [address] Phone Care Team Providers Care Vtc Technician Name Role Phone Tj Duncan MD Primary Care Provider [phone] Ct, [facility] Home [facility] Unavailable Sylvia vailable Nasir Santos MD Unavailable Reason for Visit * Reason Comments Medication Refill Encounter Details Date Type Department Care Team (Late st Contact Info) Description 09/18/2022 Refill [facility] [address] [place] [address] Tj Duncan MD #[address] [address] Medication Refill Social History Tobacco Use Types [...] on file Sexual Orientation Not on file COVID-19 Exposure Response Date Recorded In the last 10 days, have yo u been in contact with someone who was confirmed or suspected to have Coronavirus/COVID-19? No / Unsure 09/18/2022 3:51 PM CDT documented as of this encounter Miscellaneous Notes * Telephone Encounter - Parris Miranda RN - 09/18/2022 12:27 PM CDT Medication failed the protocol, provider to review and approve the medication order if appropriate. Requested Prescriptions Pending Prescriptions Disp Refills naproxen (NAPROSYN) 500 MG Tablet [Pharmacy Med Name: NAPROXEN 500 MG TABLET] 60 Tablet 0 Sig: TAKE 1 TABLET BY MOUTH TWICE A DAY WITH MEALS NSAIDs Protocol Failed - 09/18/2022 12:41 AM Failed - Normal serum creatinine in past 12 months No results found for: CREATININE Failed - No matching NSAID med order in past 45 days Matching medication order placed on 08/14/2022 10:14 AM Order [id number]: naproxen (NAPROSYN) 500 MG Tablet (For orders placed between 08/04/2022 12:27 PM and 09/18/2022 12:27 PM) Failed - AST less than 55 or ALT less than 90 in past 12 months No results found for: SGOTAST No results found for: SGPTALT Failed - HGB greater than 10 or HCT greater than 30 in past 12 months HEMOGLOBIN (HGB) Date Value Ref Range Status 05/21/2017 14.5 13.0 - 16.5 g/dL Final HEMATOCRIT (HCT) Date Value Ref Range Status 05/21/2017 41.9 38.0 - 50.0 % Final Passed - Visit with relevant provider in past 12 months or upcoming 90 days Recent Visits Date Type Provider Dept 06/22/22 Office Visit Tj Duncan MD [facility] 04/11/22 Office Visit Tj Duncan MD [facility] 12/15/21 Office [facility] Showing recent visits within past 365 days and meeting all other requirements Today's Visits Date Type Provider Dept 09/18/22 Appointment Ilda Macario APRN, [facility] Showing today's visits and meeting all other requirements Future Appointments No visits were found meeting these conditions. Showing future appointments within next 90 days and meeting all other requirements documented in this encounter Plan of Treatment Upcoming Encounters Date Type Department Care Team (Late st Contact Info) Description 10/27/2024 8:15 AM CDT Office Visit [facility] [address] [place] [address] Tj Duncan MD #2 [facility] [address] [place] [address] documented as of this encounter Visit Diagnoses Not on filedocumented in this encounter Additional Health Concerns Infection Onset Date Last Indicated Resolved Time C. difficile Rule-Out 11/02/2022 11/02/20222022 1:14 PM CDT Assessment Noted Time PHQ-9 Depression Total Score: 0 06/22/20 3:00 PM LIBRARY HELPER documented as of this encounter Care Teams Vtc Technician Relationship Specialty Start Date End Date Tj Duncan MD #[address] [address] PCP - General Family Medicine 05/17/15 Ct, [facility] [place] 08/19/20 Nasir Santos MD #[address] [address] Consulting Physician Colon and Rectal Surgery 01/14/24 documented as of this encounter
--- OUTSIDE RECORDS SUMMARY | 2024-07-24 13:17 | XMS_ITS | Encounter Summary ---
Author Organization [facility] Address [address] [place] [address] Phone Care Team Providers Care Cuff Folder Name Role Phone Tj Duncan MD Primary Care Provider [phone] Ct, [facility] Unavailable Sylvia vailable Nasir Santos MD Unavailable Reason for Visit * Reason Comments Medication Refill Encounter Details Date Type Department Care Team (Late st Contact Info) Description 08/13/2022 Refill [facility] #2 [place] [address] Tj Duncan MD #[address] [address] Medication Refill Social History Tobacco Use Types [...] Telephone Encounter - Parris Miranda RN - 08/14/2022 10:10 AM CST Medication failed the protocol, provider to review and approve the medication order if appropriate. Requested Prescriptions Pending Prescriptions Disp Refills naproxen (NAPROSYN) 500 MG Tablet [Pharmacy Med Name: NAPROXEN 500 MG TABLET] 60 Tablet 0 Sig: TAKE 1 TABLET BY MOUTH TWICE A DAY WITH MEALS NSAIDs Protocol Failed - 08/13/2022 7:34 AM Failed - Normal serum creatinine in past 12 months No results found for: CREATININE Failed - AST less than 55 or [...] Dept 06/22/22 Office Visit Tj Duncan MD [facility] 04/11/22 Office Visit Tj Duncan MD [facility] 12/15/21 Office Visit Tj Duncan MD [facility] 09/06/21 Office Visit Aidan Canales APRN, CNP [facility] 08/22/21 Office Visit Aidan Canales APRN, MAGNO [facility] Showing recent visits within past 365 days and meeting all other requirements Future Appointments No visits were found meeting these conditions. Showing future appointments within next 90 days and meeting all other requirements Passed - No matching NSAID med order in past 45 days No matching medication orders between 06/30/2022 10:10 AM and 08/14/2022 10:10 AM WAX BLEACHER documented in this encounter Plan of Treatment Upcoming Encounters Date Type Department Care Team (Late st Contact Info) Description 10/27/2024 8:15 AM CDT Office Visit [facility] Medical [facility] - Family [facility] #2 [place] [id number] Tj Duncan MD #2 [facility] [address] [place] [address] documented as of this encounter Visit Diagnoses Not on filedocumented in this encounter Additional Health Concerns Infection Onset Date Last Indicated Resolved Time C. difficile Rule-Out 11/02/2022 11/02/20222022 1:14 PM CDT Assessment Noted Time PHQ-9 Depression Total Score: 0 06/22/20 3:00 PM BEESWAX BLEACHER documented as of this encounter Care Teams Cuff Folder Relationship Specialty Start Date End Date Tj Duncan MD #2 [facility] [address] [place] [address] PCP - General Family Medicine 05/17/15 Ct, [facility] [place] 08/19/20 Nasir Santos MD #2 [facility] [address] [place] [address] Consulting Physician Colon and Rectal Surgery 01/14/24 documented as of this encounter
--- OUTSIDE RECORDS SUMMARY | 2024-07-24 13:17 | XMS_ITS | Encounter Summary ---
Author Organization [facility] Address [address] [place] [address] Phone Care Team Providers Care Substation Operator Name Role Phone Tj Duncan MD Primary Care Provider [phone] Ct, Acute [facility] At Home [facility] Unavailable Sylvia vailable Nasir Santos MD Unavailable Reason for Visit * Reason Comments Medication Refill Encounter Details Date Type Department Care Team (Late st Contact Info) Description 09/09/2023 Refill [facility] #2 [place] [address] Tj Duncan MD #[address] [address] Medication Refill Social History Tobacco Use Types [...] encounter Miscellaneous Notes * Telephone Encounter - Gabby Moulton RMA - 09/11/2023 4:00 PM CDT scheduled * Telephone Encounter - Parris Miranda RN - 09/10/2023 10:42 AM CDT Needs OV with PCP * Telephone Encounter - Parris Miranda RN - 09/10/2023 10:42 AM CDT Medication failed the protocol, provider to review and approve the medication order if appropriate. Requested Prescriptions Pending Prescriptions Disp Refills apixaban (Eliquis) 5 MG Tablet [Pharmacy Med Name: ELIQUIS 5 MG TABLET] 180 Tablet 0 Sig: TAKE 1 TABLET BY MOUTH 2 TIMES DAILY. INDICATIONS: PREVENTION OF UNWANTED CLOT IN VEINS Not Delegated - DOACs Protocol Failed - 09/09/2023 1:10 PM Failed - This refill cannot be delegated Failed - CBC on record in the past year WBC Date Value Ref Range Status 05/21/2017 5.73 4.00 - 12.00 10(3)/mcL Final RBC Date Value Ref Range Status 05/21/2017 4.73 4.40 - 5.80 10(6)/mcL Final HEMATOCRIT (HCT) Date Value Ref Range Status 05/21/2017 41.9 38.0 - 50.0 % Final HEMOGLOBIN (HGB) Date Value Ref Range Status 05/21/2017 14.5 13.0 - 16.5 g/dL Final MCV Date Value Ref Range Status 05/21/2017 88.6 82.0 - 96.0 fL Final MCH Date Value Ref Range Status 05/21/2017 30.7 26.0 - 32.0 pg Final MCHC Date Value Ref Range Status 05/21/2017 34.6 31.0 - 36.0 g/dL Final Failed - CMP on record in the past year No results found for: SODIUM , POTASSIUM , CHLORIDE , CO2VEN , ANIONGAP , GLUCOSE , BUN , CREATININE , BCRATIO8 , TOTALPROTEIN , ALBUMIN , AGRT , AGRATIO , CALCIUM , TBIL , SGOTAST , SGPTALT , ALKALINEPHO , GFRNA , GFRA , GFRES , CMPREQFAST , CMPFAST Failed - Creatinine and GFR on record in the past year No results found for: CREATININE , GFRES No results found for: GFRNA Passed - Visit with relevant provider in past 12 months or upcoming 90 days Recent Visits Date Type Provider Dept 11/02/22 [facility]22 Office Visit Ilda Macario APRN, ASSET PROTECTION ASSOCIATE [facility] Showing recent visits within past 365 days and meeting all other requirements Future Appointments No visits were found meeting these conditions. Showing future appointments within next 90 days and meeting all other requirements documented in this encounter Plan of Treatment Upcoming Encounters Date Type Department Care Team (Late st Contact Info) Description 10/27/2024 8:15 AM CDT Office Visit [facility] Family [facility] #2 [place] [address] Tj Duncan MD #[address] [address] documented as of this encounter Visit Diagnoses Diagnosis Blood clotting disorder (HCC) Other and unspecified coagulation defects documented in this encounter Additional Health Concerns Assessment Noted Time PHQ-9 Depression Total Score: 0 06/22/20 22 3:00 PM SENIOR SALES OPERATIONS ANALYST documented as of this encounter Care Teams Substation Operator Relationship Specialty Start Date End Date Tj Duncan MD #[address] [address] PCP - General Family Medicine 05/17/15 Ct, [facility] Home [facility] [place] 08/19/20 Nasir Santos MD #[address] [address] Consulting Physician Colon and Rectal Surgery 01/14/24 documented as of this encounter
--- OUTSIDE RECORDS SUMMARY | 2024-07-24 13:17 | XMS_ITS | Clinical Summary ---
Author Organization [facility] Address #1 [place] [address] Phone Care Team Providers Care Corporate Safety Director Name Role Phone Tj Duncan MD Primary Care Provider [phone] Ct, Acute [facility] Home [facility] Unavailable Sylvia Nasir Johnson MD Unavailable Allergies Active Allergy Reactions Criticality Noted Date Comments Shellfish Allergy Hives,Nausea Medium 06/27/2015 Shellfish-Derived Products Hives,Vomiting 08/22 Rivaroxaban Other (see Comments) 12/15/2021 dizziness Medications tamsulosin (FLOMAX) 0.4 MG Capsule Take 1 Cap by mouth daily. 90 Cap 4 0 Active Additional Information Patient taking differently:0.4 mg OralPRN, Reported on 03/04/2024 dicyclomine (BENTYL) 10 MG Capsule TAKE 1 CAPSULE BY MOUTH THREE TIMES A DAY 270 Capsule 1 3 Active Additional Information Patient not taking.Reported on 01/22/2024 ACYCLOVIR PO Take by mouth. Ac tive triamcinolone (KENALOG) 0.025 % Ointment Application Site: apply daily to left calf (Description and Location) 80 g 1 4 Active Additional Information Patient taking differently: PRN, Application Site: apply daily to left calf (Description and Location), Reported on 03/04/2024 atorvastatin (LIPITOR) 40 MG Tablet Take 1 Tablet by mouth daily. 90 Tablet 1 4 Active Eliquis 5 MG TabletIndicatio ns:Blood clotting disorder (HCC) TAKE 1 TABLET BY MOUTH 2 TIMES DAILY. INDICATIONS: PREVENTION OF UNWANTED CLOT IN VEINS 180 Tablet 1 4 Active Active Problems Problem Noted Date Diagnosed Date Benign non-nodular prostatic hyperplasia with lower urinary tract symptoms 08/22/2016 Colon cancer screening 08/22/2016 Depression 01/21/2016 Vertigo 10/21/2015 Blood clotting disorder 06/01/2015 Deep vein thrombophlebitis of left leg 5 Encounters Date Type Department Care Team Description 05/16/2024 Refill [facility] #2 [place] [address] Tj Duncan MD Medication Refill from Last 3 Months Immunizations Immunization Administration Dates Next Due Influenza Vaccine 04/05/2018,04/03/2018,04/14/20 15 Influenza Vaccine greater than 3 yrs 04/05/2018 Influenza Vaccine, Quadrivalent, PF 04/11/2022,1 08/17/2020,04/05/2018 Pneumococcal Vaccine Adult - 23 Valent 5 TDAP Vaccine 02/10/2020 Family History Medical History Relation Name Comments No Known Problems Daughter 1 Cancer Daughter 2 brain Other-comment Daughter 2 blood clots Heart Attack Father Prostate Cancer Father No Known Problems Maternal Grandfather No Known Problems Maternal Grandmother High Cholesterol Mother Other-comment Mother blood clots Rheumatoid Arthritis Mother Heart Disease Paternal Grandfather Macular Degeneration Sister Relation Name Status Comments Daughter 1 Alive Daughter 2 Father Maternal Grandfather Maternal Grandmother Mother Paternal Grandfather Paternal Grandmother Sister Alive Social History Tobacco Use Types Packs/Day Years Used Date Smoking Tobacco: Never Smokeless Tobacco: Never Tobacco Cessation:Counseling Given: Not Answered Alcohol Use Standard Drinks/Week Comments Yes 8 (1 standard drink = 0.6 oz pur e alcohol) Socially PHQ-2 Answer Date Recorded Total Score - Questions 1-9 0 06/2023 Sexually Active Control Partners Comments Yes Female Sex and Gender Information Value Date Recorded Sex Assigned at Not on file Legal Sex Male 11:52 PM CDT Gender Identity Not on file Sexual Orientation Not on file Last Filed Vital Signs Vital Sign Reading Time Taken Comments Blood Pressure 114/83 03/13/2024 9:14 AM CDT Pulse 55 03/13/2024 9:14 AM CDT Temperature 36 ??C (96.8 ??F) 03/13/2024 9:14 AM CDT Respiratory Rate 14 03/13/2024 9:14 AM CDT Oxygen Saturation 96% 03/13/2024 9:14 AM CDT Inhaled Oxygen Concentration - - Weight 122.5 kg (270 lb) 03/13/2024 7:52 AM CDT Height 175.3 cm (5' 9 ) 03/13/2024 7:52 AM CDT Body Mass Index 39.87 03/13/2024 7:52 AM CDT Plan of Treatment Upcoming Encounters Date Type Department Care Team (Late st Contact Info) Description 10/27/2024 8:15 AM CDT Office Visit [facility] #2 [place] [address] Tj Duncan MD #[address] [address] Health Maintenance Due Date Last Done Comments Cologuard 2011 Immunochemical Fecal Occult Blood 2011 Zoster Immunization (1 of 2) 2011 Pneumococcal Immunization (50+ years) (2 of 2 - PCV) 05/18/2016 05/18/2015 Influenza Immunization (#1) 02/24/202403/25, 06/16/2021, 04/05/2018, Additional history exists SARS-COV-2 Immunization ( - season) 2024 07/25/2021, 11/30/2020 Colonoscopy 03/13/2029 03/13/2024, 02/23, 02/09/2017 Colorectal Cancer Screening 03/13/2029 Td Immunization Every 10 Years (Adults With 1 Tdap) 02/09/2030 02/10/2020 Respiratory Syncytial Virus (RSV) Immunization (Adult) (1 - 1-dose 75+ series) 2036 03/13/2024, 02/09/2017 Pneumococcal Immunization Combined Discontinued 05/18/2015 Hepatitis C Virus (HCV) Screening Completed 10/24/2023 PSA Discussion Completed 10/24/2023, 05/27, 06/20/2021, Additional history exists Hepatitis B Immunization Aged Out No longer eligible based on patient's age to complete this topic Meningococcal Immunization (ACWY) Aged Out No longer eligible based on patient's age to complete this topic Rotavirus Immunization Aged Out No lo nger eligible based on patient's age to complete this topic Procedures Procedure Name Priority Date/Time Associated Diagnosis Comments EMG/NCV 06/03/2024 12:00 AM PARTY BUS DRIVER HEPATITIS C ANTIBODY Routine 10/24/2023 Need for hepatitis C screening test PSA SCREEN Today 10/24/2023 Screening for prostate cancer from Last 3 Months or Most Recently Relevant to Health Maintenance Results * EMG/NCV (06/03/2024 12:00 AM PARTY BUS DRIVER) 06/03/2024 Provider Scan NEUROLOGY ORDERABLES Final Resul t SCAN * PSA SCREEN (10/24/2023) Blood 10/24/2023 Tj Duncan MD CHEMISTRY ORDERABLES Final Re sult * HEPATITIS C ANTIBODY (10/24/2023) Blood 10/24/2023 Tj Duncan MD CHEMISTRY ORDERABLES Final Re sult from Last 3 Months or Most Recently Relevant to [place] [id number] Mobile Active Defense Care Teams Corporate Safety Director Relationship Specialty Start Date End Date Tj Duncan MD #2 [facility] [address] [place] [address] PCP - General Family Medicine 05/17/15 Ct, Acute [facility] Home [facility] [place] 08/19/20 Nasir Santos MD #2 [facility] [address] [place] [address] Consulting Physician Colon and Rectal Surgery 01/14/24
== END 2024-07-24 12:32 | disposition home or self-care (01) ==
PROVIDERS: PCP Internal Medicine; Visit Provider Neurological Surgery
DX: G95.9 Disease of spinal cord, unspecified (principal); M47.22 Other spondylosis with radiculopathy, cervical region
CPT/HCPCS: 72050

== ENCOUNTER 2024-08-04 10:48 | Outpatient (CLI) | payer OTHER, SELFPAY ==
--- OUTSIDE RECORDS SUMMARY | 2024-08-04 11:40 | XMS_ITS | Encounter Summary ---
Author Organization [facility] Address [address] [place] [address] Phone Care Team Providers Care Highway Engineering Technician Name Role Phone Tj Duncan MD Primary Care Provider [phone] Ct, Acute Covid At Home Care Unavailable Yslvia vailable Nasir Santos MD Unavailable Reason for Visit * Reason Comments Medication Refill Encounter Details Date Type Department Care Team (Late st Contact Info) Description 09/09/2023 Refill [facility] - Family Medicine [facility] #2 [place] [address] Tj Duncan MD #[address] [address] Medication Refill Social History Tobacco Use Types [...] Dept 11/02/22 Office Visit Tj Duncan MD [facility] 09/18/22 Office Visit Ilda Macario APRN, INTENSIVE CARE NURSE [facility] Showing recent visits within past 365 days and meeting all other requirements Future Appointments No visits were found meeting these conditions. Showing future appointments within next 90 days and meeting all other requirements documented in this encounter Plan of Treatment Upcoming Encounters Date Type Department Care Team (Late st Contact Info) Description 10/27/2024 8:15 AM CDT Office Visit [facility] - Family [facility] #2 [place] [address] Tj Duncan MD #[address] [address] documented as of this encounter Visit Diagnoses Diagnosis Blood clotting disorder (HCC) Other and unspecified coagulation defects documented in this encounter Additional Health Concerns Assessment Noted Time PHQ-9 Depression Total Score: 0 06/22/20 22 3:00 PM OBIEE CONSULTANT documented as of this encounter Care Teams Highway Engineering Technician Relationship Specialty Start Date End Date Tj Duncan MD #[address] [address] PCP - General Family Medicine 05/17/15 Ct, Acute Covid At Home Care [place] 08/19/20 Nasir Santos MD #[address] [address] Consulting Physician Colon and Rectal Surgery 01/14/24 documented as of this encounter
--- OUTSIDE RECORDS SUMMARY | 2024-08-04 11:40 | XMS_ITS | Encounter Summary ---
Author Organization [facility] Address [address] [place] [address] Phone Care Team Providers Care Sales Consulting Director Name Role Phone Tj Duncan MD Primary Care Provider [phone] Ct, Acute Covid At Home Care Unavailable Sylvia vailable Nasir Santos MD Unavailable Reason for Visit * Reason Comments Medication Refill Encounter Details Date Type Department Care Team (Late st Contact Info) Description 08/05/2022 Refill [facility] #2 [place] [address] Tj Duncan MD #[address] [address] Medication Refill Social History Tobacco Use Types [...] 08/22/21 Office Visit Aidan Canales APRN, MAGNO [facility] Showing recent visits within past 365 days and meeting all other requirements Future Appointments No visits were found meeting these conditions. Showing future appointments within next 90 days and meeting all other requirements AL HOSPITAL CLERK documented in this encounter Plan of Treatment Upcoming Encounters Date Type Department Care Team (Late st Contact Info) Description 10/27/2024 8:15 AM CDT Office Visit [facility] - [facility] - [place] #[address] [place] [address] Tj Duncan MD #[address] [address] documented as of this encounter Visit Diagnoses Not on filedocumented in this encounter Additional Health Concerns Infection Onset Date Last Indicated Resolved Time C. difficile Rule-Out 11/02/2022 11/02/20222022 1:14 PM CDT Assessment Noted Time PHQ-9 Depression Total Score: 0 06/22/20 3:00 PM ANIMAL HOSPITAL CLERK documented as of this encounter Care Teams Sales Consulting Director Relationship Specialty Start Date End Date Tj Duncan MD #2 [facility] [address] [place] [address] PCP - General Family Medicine 05/17/15 Ct, Acute Covid At Home Care [place] 08/19/20 Nasir Santos MD #2 [facility] [address] [place] [address] Consulting Physician Colon and Rectal Surgery 01/14/24 documented as of this encounter
--- OUTSIDE RECORDS SUMMARY | 2024-08-04 11:40 | XMS_ITS | Clinical Summary ---
Author Organization [facility] Address #1 [place] [address] Phone Care Team Providers Care Hand Bobbin Cleaner Name Role Phone Tj Duncan MD Primary Care Provider [phone] Ct, Acute Covid At Home Care Unavailable [...] Description 05/16/2024 Refill [facility] #2 [place] [address] Tj Duncan MD Medication Refill [...] 55 03/13/2024 9:14 AM CDT Temperature 36 C (96.8 F) 03/13/2024 9:14 AM CDT Respiratory Rate 14 [...] CDT Office Visit [facility] - Family [facility] #2 [place] [address] Tj Duncan MD #[address] [address] Health Maintenance Due Date Last Done Comments Cologuard 2011 Immunochemical Fecal Occult Blood 2011 Zoster Immunization (1 of 2) 2011 Pneumococcal Immunization (50+ years) (2 of 2 - PCV) 05/18/2016 05/18/2015 Influenza Immunization (#1) 02/24/202403/25, 06/16/2021, 04/05/2018, Additional history exists SARS-COV-2 Immunization (3 - season) 2024 07/25/2021, 11/30/2020 Colonoscopy 03/13/2029 [...] Procedure Name Priority Date/Time Associated Diagnosis Comments XR - SPINE 07/24/2024 12:00 AM JUDICIAL ASSISTANT EMG/NCV 06/03/2024 12:00 AM JUDICIAL ASSISTANT HEPATITIS C ANTIBODY Routine 10/24/2023 Need for hepatitis C screening test PSA SCREEN Today 10/24/2023 Screening for prostate cancer from Last 3 Months or Most Recently Relevant to Health Maintenance Results * XR - SPINE (07/24/2024 12:00 AM JUDICIAL ASSISTANT) 07/24/2024 Provider Scan IMG DIAGNOSTIC ORDERABLES Final Result Performing Organization Address City/[facility]/ZIP Co de Phone Number SCAN * EMG/NCV (06/03/2024 12:00 AM JUDICIAL ASSISTANT) 06/03/2024 Provider Scan NEUROLOGY ORDERABLES Final Resul t SCAN * PSA SCREEN (10/24/2023) Blood 10/24/2023 Tj Duncan MD CHEMISTRY ORDERABLES Final Re sult * HEPATITIS C ANTIBODY (10/24/2023) Blood 10/24/2023 Tj Duncan MD CHEMISTRY ORDERABLES Final Re sult from Last 3 Months or Most Recently Relevant to [place] [address] [employer] Care Teams Hand Bobbin Cleaner Relationship Specialty Start Date End Date Tj Duncan MD #2 [facility] [address] [place] [address] PCP - General Family Medicine 05/17/15 Ct, Acute Covid At Home Care [place] 08/19/20 Nasir Santos MD #2 [facility] [address] [place] [address] Consulting Physician Colon and Rectal Surgery 01/14/24
--- OUTSIDE RECORDS SUMMARY | 2024-08-04 11:40 | XMS_ITS | Encounter Summary ---
Author Organization [facility] Address [address] [place] [address] Phone Care Team Providers Care Button Maker And Installer Name Role Phone Tj Duncan MD Primary Care Provider Ct, [facility] Unavailable Sylvia vailable Nasir Santos MD Unavailable Reason for Visit * Reason Comments Medication Refill Encounter Details Date Type Department Care Team (Late st Contact Info) Description 08/13/2022 Refill [facility] #2 [place] [address] Tj Duncan MD #[address] [address] Medication Refill Social History Tobacco Use Types [...] Dept 06/22/22 Office Visit Tj Duncan MD [facility] 04/11/22 [facility]21 Office Visit Tj Duncan MD [facility] 09/06/21 Office Visit Aidan Canales APRN, CNP [facility] 08/22/21 Office Visit Aidan Canales APRN, MAGNO [facility] Showing recent visits within past 365 days and meeting all other requirements Future Appointments No visits were found meeting these conditions. Showing future appointments within next 90 days and meeting all other requirements Passed - No matching NSAID med order in past 45 days No matching medication orders between 06/30/2022 10:10 AM and 08/14/2022 10:10 AM STRIAL RADIOGRAPHER documented in this encounter Plan of Treatment Upcoming Encounters Date Type Department Care Team (Late st Contact Info) Description 10/27/2024 8:15 AM CDT Office Visit [facility] Medical [facility] - Family [facility] #2 [place] [id number] Tj Duncan MD #2 [facility] [address] [place] [address] documented as of this encounter Visit Diagnoses Not on filedocumented in this encounter Additional Health Concerns Infection Onset Date Last Indicated Resolved Time C. difficile Rule-Out 11/02/2022 11/02/20222022 1:14 PM CDT Assessment Noted Time PHQ-9 Depression Total Score: 0 06/22/20 3:00 PM INDUSTRIAL RADIOGRAPHER documented as of this encounter Care Teams Button Maker And Installer Relationship Specialty Start Date End Date Tj Duncan MD #2 [facility] [address] [place] [address] PCP - General Family Medicine 05/17/15 Ct, [facility] [place] 08/19/20 Nasir Santos MD #2 [facility] [address] [place] [address] Consulting Physician Colon and Rectal Surgery 01/14/24 documented as of this encounter
--- OUTSIDE RECORDS SUMMARY | 2024-08-04 11:40 | XMS_ITS | Encounter Summary ---
Author Organization [facility] Address [address] [place] [address] Phone Care Team Providers Care Hotel Sales Manager Name Role Phone Tj Duncan MD Primary Care Provider [phone] Ct, [facility] Home [facility] Unavailable Sylvia vailable Nasir Santos MD Unavailable Reason for Visit * Reason Comments Medication Refill Encounter Details Date Type Department Care Team (Late st Contact Info) Description 09/18/2022 Refill [facility] #2 [place] [address] Tj Duncan MD #[address] [address] Medication Refill Social History Tobacco Use Types [...] order placed on 08/14/2022 10:14 AM Order [id number]: naproxen (NAPROSYN) 500 MG Tablet (For orders [...] [facility] 12/15/21 Office Visit Tj Duncan MD [facility] Showing recent visits within past 365 days and meeting all other requirements Today's Visits Date Type Provider Dept 09/18/22 Appointment Ilda Macario APRN, MAGNO [facility] Showing today's visits and meeting all other requirements Future Appointments No visits were found meeting these conditions. Showing future appointments within next 90 days and meeting all other requirements documented in this encounter Plan of Treatment Upcoming Encounters Date Type Department Care Team (Late st Contact Info) Description 10/27/2024 8:15 AM CDT Office Visit [facility] #[address] [place] [address] Tj Duncan MD #2 [facility] [address] [place] [address] documented as of this encounter Visit Diagnoses Not on filedocumented in this encounter Additional Health Concerns Infection Onset Date Last Indicated Resolved Time C. difficile Rule-Out 11/02/2022 11/02/20222022 1:14 PM CDT Assessment Noted Time PHQ-9 Depression Total Score: 0 06/22/20 3:00 PM CAMERA MAKER documented as of this encounter Care Teams Hotel Sales Manager Relationship Specialty Start Date End Date Tj Duncan MD #[address] [address] PCP - General Family Medicine 05/17/15 Ct, [facility] [place] 08/19/20 Nasir Santos MD #[address] [address] Consulting Physician Colon and Rectal Surgery 01/14/24 documented as of this encounter
--- OUTSIDE RECORDS SUMMARY | 2024-08-04 11:40 | XMS_ITS | Encounter Summary ---
Author Organization [facility] Address [address] [place] [address] Phone Care Team Providers Care Forgesmith Name Role Phone Tj Duncan MD Primary Care Provider [phone] Ct, Acute Covid At Home Care Unavailable Slyvia vailable Nasir Santos MD Unavailable Reason for Visit * Reason Comments Medication Refill Encounter Details Date Type Department Care Team (Late st Contact Info) Description 01/19/2020 [facility]ill [facility] [address] [place] [address] Tj Duncan MD #[address] [address] Medication Refill Social History Tobacco Use Types [...] on 01-15-20 for #60+0. Pharmacy notified via [employer]. documented in this encounter Plan of Treatment Upcoming Encounters Date Type Department Care Team (Late st Contact Info) Description 10/27/2024 8:15 AM CDT Office Visit [facility] Family [facility] #2 [place] [address] Tj Duncan MD #[address] [address] documented as of this encounter Visit Diagnoses Diagnosis Deep vein thrombophlebitis of left leg (HCC) Phlebitis and thrombophlebitis of other deep vessels of lower extremities documented in this encounter Additional Health Concerns Infection Onset Date Last Indicated Resolved Time COVID - 19 Confirmed 08/15/2020 08/19/2020 021 12:[address] MANAGER C. difficile Rule-Out 11/02/2022 11/02/20222022 1:14 PM CDT Assessment Noted Time PHQ-9 Depression Total Score: 0 10/23/19 19 5:00 PM CDT documented as of this encounter Care Teams Forgesmith Relationship Specialty Start Date End Date Tj Duncan MD #[address] [address] PCP - General Family Medicine 05/17/15 Ct, [facility] [place] 08/19/20 Nasir Santos MD #[address] [address] Consulting Physician Colon and Rectal Surgery 01/14/24 documented as of this encounter
[2024-08-04 12:14] LABS: Hematocrit 45.9 % (42.0-52.0); Hemoglobin 15.8 g/dL (14.0-18.0); Mean Corpuscular HGB Conc 34.4 g/dl (32-36); Mean Corpuscular Hemoglobin 30.6 pg (26-34); Mean Corpuscular Volume 88.8 fl (80-100); Mean Platelet Volume 9.8 fl (7.4-10.4); Platelet Count Result 160 k/mm3 (150-375); Red Blood Count 5.17 M/mm3 (4.6-6.20); Red Cell Distribution Width 12.9 % (11.5-14.5); White Blood Count 4.2 K/mm3 (4.5-10.0)
[2024-08-04 12:16] LABS: Add Urine Microscopic? NO; Appearance Urine Clear (Clear); Bilirubin Urine Negative (Negative); Blood Urine Negative (Negative); Color Urine Yellow (Yellow); Glucose Urine UA Negative (Negative); Ketones Urine Negative (Negative); Leukocyte Esterase Ur Negative LEU/UL (Negative); Nitrate Urine Negative (Negative); Protein Urine Negative (Negative); Specific Grav Ur 1.019 (1.001-1.035); pH Urine 6.5 (5.0-9.0)
[2024-08-04 12:26] LABS: Anion Gap 8 mmol/L (4-12); Blood Urea Nitrogen 17 mg/dL (9-20); Calcium 8.8 mg/dL (8.4-10.2); Carbon Dioxide 28 mmol/L (22-30); Chloride 105 mmol/L (98-107); Estimated Glomerular Filt Rate > 60; Glucose 102 mg/dL (65-110); Potassium 4.6 mmol/L (3.4-5.0); Prothrombin Time 13.3 Seconds (11.1-14.7); Sodium 141 mmol/L (137-145)
== END 2024-08-04 10:49 | disposition home or self-care (01) ==
LOC: ANHSURGERY 10:50
PROVIDERS: PCP Internal Medicine; Visit Provider Neurological Surgery
DX: Z01.818 Encounter for other preprocedural examination (principal); M54.12 Radiculopathy, cervical region
CPT/HCPCS: 36415; 80048; 81003; 85027; 85610; 85730

== ENCOUNTER 2024-08-13 00:56 | Day surgery (SDC) | payer OTHER, SELFPAY ==
[2024-08-04 11:03] VITALS: BP 150/97; PULSE 56; RESP 16; TEMP 36.4; O2SAT 99; BMI 42.3
--- NOTE | 2024-08-04 11:14 | PC.NURSE ---
Report to the Outpatient Waiting Room, entrance under the green pavilion located off [facility], at time _06:00am on date __08/13/24 . Planned Procedure Time: _07:30am .? Time changes happen often and if your time is changed the preop area will call you the afternoon before. - You and your visitor will be asked to self-screen and do not enter if you have any COVID symptoms. Please call surgeon if you need to reschedule. - A mask is optional within the hospital at this time. Patients may have clear liquids (water, carbonated beverages, clear teas, apple juice) until 3 hours prior to surgery with a maximum of 20 ounces. - No food from midnight until time of surgery and no smoking, or chewing tobacco (or any form of nicotine). No chewing gum, candy or mints. (0430am) - Take only the following medications with a SIP of water on the morning of surgery: __Tylenol if needed DO NOT STOP ANY OF YOUR OTHER PRESCRIPTION MEDICATIONS PRIOR TO SURGERY EXCEPT THE FOLLOWING Medications to discontinue per physician Hold Eliquis for 7 days prior to surgery per Dr Davenport Date to take last dose___08/05/24 Please no make-up, nail english, hairspray, perfume, deodorant, or body powder the day of surgery.? No jewelry (including any body piercings) or valuables the day of surgery, leave them at home.? Please take a shower or bath the night before, or the morning of, surgery with an antibacterial soap.? Wear comfortable, loose fitting clothing.? - Jewelry must be removed prior to entering the operating room.? Rings and piercings that are not removed may be cut off. - The hospital will not accept responsibility for valuables.? - Please leave all valuables, including medications, at home the day of surgery. If you are going home after surgery, a licensed van driver helper must drive you home.? - NO public transportation without another adult if you receive anesthesia. - We recommend that an adult stay with you for 24 hours following discharge. - We also recommend that you do not drive, make important decision, drink alcoholic beverages, or take any drugs that were not prescribed by your health care provider for at least 24 hours after your discharge time. Follow any additional instructions given to you from your surgeon. Telephone instructions given to ___Patient and asked if any additional questions and then verbalized understanding. Patient advised to call surgeon office or pre surgery nurse liaison [phone] if any additional questions.
[2024-08-04 11:21] VITALS: BP 152/76
--- OUTSIDE RECORDS SUMMARY | 2024-08-13 00:57 | XMS_ITS | Encounter Summary ---
Author Organization [facility] Address [address] [place] [address] Phone Care Team Providers Care Matcher Leather Parts Name Role Phone Tj Duncan MD Primary Care Provider [phone] Ct, Acute [facility]id At Home [facility] Unavailable Sylvia vailable Nasir Santos MD Unavailable Reason for Visit * Reason Comments Medication Refill Encounter Details Date Type Department Care Team (Late st Contact Info) Description 09/09/2023 Refill [facility] #2 [place] [address] Tj Duncan MD #[address] [address] Medication Refill Social History Tobacco Use Types [...] Dept 11/02/22 Office Visit [facility] 09/18/22 Office Visit Ilda Macario APRN, LUNCHROOM OPERATOR [facility] Showing recent visits within past 365 [...] Office Visit [facility] - Family [facility] #2 [place] [address] Tj Duncan MD #[address] [address] documented as of this encounter Visit Diagnoses Diagnosis Blood clotting disorder (HCC) Other and unspecified coagulation defects documented in this encounter Additional Health Concerns Assessment Noted Time PHQ-9 Depression Total Score: 0 06/22/20 22 3:00 PM RN INTERNSHIP documented as of this encounter Care Teams Matcher Leather Parts Relationship Specialty Start Date End Date Tj Duncan MD #[address] [address] PCP - General Family Medicine 05/17/15 Ct, [facility] [place] 08/19/20 Nasir Santos MD #[address] [address] Consulting Physician Colon and Rectal Surgery 01/14/24 documented as of this encounter
--- OUTSIDE RECORDS SUMMARY | 2024-08-13 00:57 | XMS_ITS | Clinical Summary ---
Author Organization [facility] Address #1 [place] [address] Phone Care Team Providers Care Business Office Technician Name Role Phone Tj Duncan MD Primary Care Provider [phone] Ct, Acute Covid At Home Care Unavailable [...] Encounters Date Type Department Care Team Description 08/11/2024 Telephone [facility] #2 [place] [address] Tj Duncan MD Form Completion 05/16/2024 [facility] [place] [address] Tj Duncan MD Medication Refill from Last [...] Recorded Total Score - Questions 1-9 0 05/0 06/2023 Sexually Active Control Partners Comments Yes [...] Office Visit [facility] - Family [facility] #2 [facility] [place] [address] Tj Duncan MD #[address] [address] Health Maintenance Due Date Last Done Comments Cologuard 2011 Immunochemical Fecal Occult Blood 2011 Zoster Immunization (1 of 2) 2011 Pneumococcal Immunization (50+ years) (2 of 2 - PCV) 05/18/2016 05/18/2015 Influenza Immunization (#1) 02/24/202403/25, 06/16/2021, 04/05/2018, Additional history exists SARS-COV-2 Immunization (3 - 2023- season) 2024 07/25/2021, 11/30/2020 Colonoscopy 03/13/2029 03/13/2024, [...] Comments XR - SPINE 07/24/2024 12:00 AM QA SOFTWARE TESTER EMG/NCV 06/03/2024 12:00 AM QA SOFTWARE TESTER HEPATITIS C ANTIBODY Routine 10/24/2023 Need for hepatitis C screening test PSA SCREEN Today 10/24/2023 Screening for prostate cancer from Last 3 Months or Most Recently Relevant to Health Maintenance Results * XR - SPINE (07/24/2024 12:00 AM QA SOFTWARE TESTER) 07/24/2024 us Provider Scan IMG DIAGNOSTIC ORDERABLES Final Result SCAN * EMG/NCV (06/03/2024 12:00 AM QA SOFTWARE TESTER) 06/03/2024 us Provider Scan NEUROLOGY ORDERABLES Final Resul t SCAN * PSA SCREEN (10/24/2023) Blood 10/24/2023 us Tj Duncan MD CHEMISTRY ORDERABLES Final Re sult * HEPATITIS C ANTIBODY (10/24/2023) Blood 10/24/2023 Tj Duncan MD CHEMISTRY ORDERABLES Final Re sult from Last 3 Months or Most Recently Relevant to Health Maintenance Insurance eReceipts Care Teams Business Office Technician Relationship Specialty Start Date End Date Tj Duncan MD #2 [facility] [address] [place] [address] PCP - General Family Medicine 05/17/15 Ct, [facility] Home [facility] [place] 08/19/20 Nasir Santos MD [facility]2 [facility] [address] [place] [address] Consulting Physician Colon and Rectal Surgery 01/14/24
--- OUTSIDE RECORDS SUMMARY | 2024-08-13 00:57 | XMS_ITS | Encounter Summary ---
Author Organization [facility] Address [address] [place] [address] Phone Care Team Providers Care Semiconductor Equipment Technician Name Role Phone Tj Duncan MD Primary Care Provider [phone] Ct, Acute Covid At Home Care Unavailable Sylvia vailable Nsair Santos MD Unavailable Reason for Visit * Reason Onset Date Comments Form Completion 08/11/2024 Encounter Details Date Type Department Care Team (Late st Contact Info) Description 08/11/2024 Telephone [facility] Medicine [facility] #2 [place] [address] Tj Duncan MD #[address] [address] Form Completion Social History Tobacco Use Types Packs/Day Years [...] encounter Miscellaneous Notes * Telephone Encounter - Pebbles Zimmerman CMA - 08/12/2024 10:42 AM BIOMASS PLANT TECHNICIAN Form completed and faxed back successfully to [phone] ASS PLANT TECHNICIAN * Telephone Encounter - Pebbles Zimmerman CMA - 08/11/2024 11:14 AM BIOMASS PLANT TECHNICIAN Fax received from [facility] Placed in provider folder for Signature/Completion. ASS PLANT TECHNICIAN documented in this encounter Plan of Treatment Upcoming Encounters Date Type Department Care Team (Late st Contact Info) Description 10/27/2024 8:15 AM CDT Office Visit [facility] Family [facility] #2 [place] [address] Tj Duncan MD #2 [facility] [address] [place] [address] documented as of this encounter Visit Diagnoses Not on filedocumented in this encounter Additional Health Concerns Assessment Noted Time PHQ-9 Depression Total Score: 0 10/24/19 8:07 AM CDT documented as of this encounter Care Teams Semiconductor Equipment Technician Relationship Specialty Start Date End Date Tj Duncan MD #2 [facility] [address] [place] [address] PCP - General Family Medicine 05/17/15 Ct, Acute [facility] Home Care [place] 08/19/20 Nasir Santos MD #2 [facility] [address] [place] [address] Consulting Physician Colon and Rectal Surgery 01/14/24 documented as of this encounter
--- OUTSIDE RECORDS SUMMARY | 2024-08-13 00:58 | XMS_ITS | Continuity of Care Document ---
Author Organization [facility] Address [address] [place] [address] [place] [address] Phone Care Team Providers Care Auto Glass Technician Name Role Phone Jaleel Bone MD Unavailable Unavailable Allergies, Adverse Reactions, Alerts Substance Reaction Status Criticality No Known Allergies Active No Inform ation Medications Medication Instructions Dosage Effective Dates (start - stop) Status Comments cefdinir 300 mg capsule take 1 capsule by oral route every 12 hours 300 MG - Active atorvastatin 40 mg tablet take 1 tablet by oral route every day 40 MG - Active Ciprodex 0.3 %-0.1 % ear drops,suspension instill 4 drop by otic route 2 times every day for 7 days into affected ear(s) - Active Eliquis 5 mg tablet take 1 tablet by ora l route 2 times every day 5 MG - Active meclizine 12.5 mg tablet take 2 tablet by oral route 3 times every day as needed 25 MG - Active tamsulosin 0.4 mg capsule take 1 capsule by oral route every day 1/2 hour following the same meal each day 0.4 MG - Active Procedures Procedure Date Corneal Pachymetry Corneal Topography SCODI, Posterior Segment Visual Field Examination(s) Eye Exam, New Patient Advance Directives Directive Yes / No Effective Date File Name No Information Encounters Encounter Description Practice Location Reason(s) For Visit Diagnoses Date Provider Providers Copied on Encounter [facility], [address] [place] [address] [address], [place], [place], [id number], [place] tel:[phone] [address] Sammie N Fernandez Glaucoma evaluation (chief complaint) Ocular hypertensio n, bilateralAg e-related nuclear cataract, bilateral Lizandro Marmolejo. [address], [address], [place], [place], [id number], [place]. tel:[phone] Referring Provider: Aneesh Og OD, [address] [facility], [place], [address]. tel:[phone] Family History Family Member Type Diagnosis Age At Onset Problem (finding) Family history of degenerative disorder of macula Payers Payer name Insurance type Covered libertarian ID Aggie masters(s) Michelle CI [id number] Social History Type Description Quantity Date Captured Comments Alcohol Use Details 1 drink weekly Caffeine Use Details Tobacco Use Status Current non-smoker 19 Smoking Status Never smoker Non-Smoking Tobacco Use Details : No Details Available : No Details Available Sex Male Chief Complaint And Reason For Visit From encounter dated '2018 09:00'. Glaucoma evaluation (chief complaint). Description: The 58 year old male presents for evaluation ofGlaucoma evaluation in the right eye and left eye. Pt states he was told he has high eye pressure. He has been having a lot of dizziness and has a terrible inner ear infection. Was told to get eyes checked for dizziness issues. Reason For Referral Reason For Referral No Information Plan Of Treatment Date Type Action Status Patient Education Learning About Ocular H ypertension completed History Of Present Illness Encounter Date Complaint History Of Prese nt Illness Glaucoma evaluation The 58 year old male presents for evaluation of Glaucoma evaluation in the right eye and left eye. Pt states he was told he has high eye pressure. He has been having a lot of dizziness and has a terrible inner ear infection. Was told to get eyes checked for dizziness issues. Functional Status Date Functional Assessmen t No Information Instructions Date Instruction Additional Infor mation Impression/Plan Assessments Type Assessment Date assessment Ocular hypertension, bilateral O assessment Age-related nuclear cataract, bi lateral Patient Care Teams Name Effective Dates (start - stop) Status Members No Information
--- OUTSIDE RECORDS SUMMARY | 2024-08-13 00:58 | XMS_ITS | Continuity of Care Document ---
Author Organization [facility] Address [address] [place] [address] [address] [place] [address] Phone Care Team Providers Care Medical Office Technologist Name Role Phone Jose PT, CMPT, Esteban Unavailable Sylvia vailable Procedures Procedure Date Progress Note Therapeutic Exercise Neuromuscular Re-Ed Manual Therapy Hot or Cold Pack Therapeutic Exercise Neuromuscular Re-Ed Manual Therapy Hot or Cold Pack Therapeutic Exercise Neuromuscular Re-Ed Manual Therapy Hot or Cold Pack Therapeutic Exercise Neuromuscular Re-Ed Manual Therapy Hot or Cold Pack Therapeutic Exercise Neuromuscular Re-Ed Manual Therapy Hot or Cold Pack Therapeutic Exercise Neuromuscular Re-Ed Manual Therapy Hot or Cold Pack Therapeutic Exercise Neuromuscular Re-Ed Manual Therapy Hot or Cold Pack Therapeutic Exercise Neuromuscular Re-Ed Manual Therapy Hot or Cold Pack Therapeutic Exercise Neuromuscular Re-Ed Manual Therapy Hot or Cold Pack Progress Note Therapeutic Exercise Neuromuscular Re-Ed Manual Therapy Hot or Cold Pack Therapeutic Exercise Manual Therapy Hot or Cold Pack PT Evaluation Moderate Complexity Therapeutic Exercise Manual Therapy Hot or Cold Pack Advance Directives Directive Yes / No Effective Date File Name No Information Encounters Encounter Description Practice Location Reason(s) For Visit Diagnoses Date Provider Providers Copied on Encounter [facility], [place], [place], [id number], tel:[phone] Beni Pain in left ankle and joints of left footOther abnormalities of gait and mobilityMuscle weakness (generalized)Sti ffness of unspecified ankle, not elsewhere classifiedEffusi on, unspecified jointTarsal tunnel syndrome, left lower limbPlantar fascial fibromatosis Frank Orellana. [address] [facility], [address], [place], [facility], . tel:[phone] Referring Provider: Luis Miguel Ratliff [address] [place] [address], [place], [place], [facility]. tel:[phone] [facility] [address] [facility] [address], [place], [place], [id number], tel:[phone] [place] Pain in left ankle and joints of left footOther abnormalities of gait and mobilityMuscle weakness (generalized)Sti ffness of unspecified ankle, not elsewhere classifiedEffusi on, unspecified jointTarsal tunnel syndrome, left lower limbPlantar fascial fibromatosis Luca Renae. [address] [facility], [address], [place], [facility], . tel:[phone] Referring Provider: Luis Miguel Ratliff [address] [facility] 110, [place], [place], [facility]. tel:[phone] [facility] [facility] [address], [place], [place], [id number], [place] tel:[phone] [place] Pain in left ankle and joints of left footOther abnormalities of gait and mobilityMuscle weakness (generalized)Sti ffness of unspecified ankle, not elsewhere classifiedEffusi on, unspecified jointTarsal tunnel syndrome, left lower limbPlantar fascial fibromatosis Luca Renae. [address] [facility], [address], [place], [place], [facility], [place]. tel: [phone] Referring Provider: Luis Miguel Ratliff, [address] [facility] [address], [place], [place], [facility]. tel:[phone] [address], [place], [place], [id number], [place] tel:[phone] [place] Pain in left ankle and joints of left footOther abnormalities of gait and mobilityMuscle weakness (generalized)Sti ffness of unspecified ankle, not elsewhere classifiedEffusi on, unspecified jointTarsal tunnel syndrome, left lower limbPlantar fascial fibromatosis Frank Orellana. [address] [facility], [address], [place], [place], [facility], [place]. tel: [phone] Referring Provider: Luis Miguel Ratliff, [address] [facility] [address], [place], [address]. tel:[phone], [place], [place], [id number], [place] tel:[phone] [place] Pain in left ankle and joints of left footOther abnormalities of gait and mobilityMuscle weakness (generalized)Sti ffness of unspecified ankle, not elsewhere classifiedEffusi on, unspecified jointTarsal tunnel syndrome, left lower limbPlantar fascial fibromatosis Frank Orellana. [address] [facility], [address], [place], [address], [place]. tel: [phone] Referring Provider: Luis Miguel Ratliff [address] [facility] [address], [place], [address]. tel:[phone] [facility] [address], [place], [place], [id number], tel:[phone] [place] Pain in left ankle and joints of left footOther abnormalities of gait and mobilityMuscle weakness (generalized)Sti ffness of unspecified ankle, not elsewhere classifiedEffusi on, unspecified jointTarsal tunnel syndrome, left lower limbPlantar fascial fibromatosis Frank Orellana. [address] [facility], [address], [place], [place], [facility], . tel:[phone] Referring Provider: Luis Miguel Ratliff, [facility] [address], [place], [place], [facility]. tel:[phone] [facility] [address], [place], [place], [address], tel:[phone] [place] Pain in left ankle and joints of left footOther abnormalities of gait and mobilityMuscle weakness (generalized)Sti ffness of unspecified ankle, not elsewhere classifiedEffusi on, unspecified jointTarsal tunnel syndrome, left lower limbPlantar fascial fibromatosis Frank Orellana. [address] [facility], [address], [place], [facility], [place]. tel:[phone] Referring Provider: Luis Miguel Ratliff, [address] [place] [address], [place], [facility]. tel:[phone] [facility] [address], [place], [place], [id number], tel:[phone] [place] Pain in left ankle and joints of left footOther abnormalities of gait and mobilityMuscle weakness (generalized)Sti ffness of unspecified ankle, not elsewhere classifiedEffusi on, unspecified jointTarsal tunnel syndrome, left lower limbPlantar fascial fibromatosis Luca Renae. [address] [facility], [address], [place], [place], [facility], . tel:[phone] Referring Provider: Luis Miguel Ratliff [address] [facility] [address], [place], [facility]. tel:[phone] [facility], [place], [place], [id number], tel:[phone] [place] Pain in left ankle and joints of left footOther abnormalities of gait and mobilityMuscle weakness (generalized)Sti ffness of unspecified ankle, not elsewhere classifiedEffusi on, unspecified jointTarsal tunnel syndrome, left lower limbPlantar fascial fibromatosis Frank Orellana. [address] [facility], [address], [place], [facility], . tel:[phone] Referring Provider: Luis Miguel Ratliff, [facility] [address], [place], [place], [facility]. tel:[phone] [facility] [facility] [address], [place], [place], [address], tel:[phone] [place] Pain in left ankle and joints of left footOther abnormalities of gait and mobilityMuscle weakness (generalized)Sti ffness of unspecified ankle, not elsewhere classifiedEffusi on, unspecified jointTarsal tunnel syndrome, left lower limbPlantar fascial fibromatosis Frank Orellana. [address] [facility], [address], [place], [facility], . tel: [phone] Referring Provider: Luis Miguel Ratliff, [address] [facility], [place], [place], [facility]. tel:[phone] [facility], [place], [place], [address], [place] tel:[phone] [place] Pain in left ankle and joints of left footOther abnormalities of gait and mobilityMuscle weakness (generalized)Sti ffness of unspecified ankle, not elsewhere classifiedEffusi on, unspecified jointTarsal tunnel syndrome, left lower limbPlantar fascial fibromatosis Frank Orellana. [address] [facility], [address], [place], [facility], . tel: [phone] Referring Provider: Luis Miguel Ratliff [address] [facility] [address], [place], [address]. tel:[phone] [facility], [address] [facility] [address], [place], [place], [id number], tel:[phone] [place] Pain in left ankle and joints of left footOther abnormalities of gait and mobilityMuscle weakness (generalized)Sti ffness of unspecified ankle, not elsewhere classifiedEffusi on, unspecified jointTarsal tunnel syndrome, left lower limbPlantar fascial fibromatosis Kimberli Otto. . Referring Provider: Luis Miguel Ratliff, [address] [facility] [address], [place], [address]. tel:[phone] Family History Family Member Type Diagnosis Age At Onset No Information Payers Payer name Insurance type Covered republican ID Aggie masters(s) [employer] CI [id number] Social History Type Description Quantity Date Captured Comments Sex Male Smoking Status No Information Chief Complaint And Reason For Visit No Information Reason For Referral Reason For Referral No Information History Of Present Illness Encounter Date Complaint History Of Prese nt Illness No Information Functional Status Date Functional Assessmen t No Information Instructions Date Instruction Additional Infor mation No Information Assessments Type Assessment Date No Information Patient Care Teams Name Effective Dates (start - stop) Status Members No Information
--- OUTSIDE RECORDS SUMMARY | 2024-08-13 00:58 | XMS_ITS | Encounter Summary ---
Author Organization [facility] Address [address] [place] [address] Phone Care Team Providers Care Cafeteria Attendant Name Role Phone Tj Duncan MD Primary Care Provider [phone] Ct, [facility] Unavailable Sylvia vailable Nasir Santos MD Unavailable Reason for Visit * Reason Comments Medication Refill Encounter Details Date Type Department Care Team (Late st Contact Info) Description 08/05/2022 Refill [facility] [place] [address]2 [place] [address] Tj Duncan MD #[address] [address] Medication Refill Social History Tobacco Use Types [...] 08/22/21 Office [facility] Show[facility] recent visits within past 365 days and meeting all other requirements Future Appointments No visits were found meeting these conditions. 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 - Family Medicine - [place] [address] [place] [address] Tj Duncan MD [address] [address] documented as of this encounter Visit Diagnoses Not on filedocumented in this encounter Additional Health Concerns Infection Onset Date Last Indicated Resolved Time C. 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
--- OUTSIDE RECORDS SUMMARY | 2024-08-13 00:58 | XMS_ITS | Encounter Summary ---
Author Organization [facility] Address [address] [place] [address] Phone Care Team Providers Care Class A Regional Truck Driver Name Role Phone Tj Duncan MD Primary Care Provider [phone] Ct, [facility] Unavailable Sylvia vailable Nasir Santos MD Unavailable Reason for Visit * Reason Comments Medication Refill Encounter Details Date Type Department Care Team (Late st Contact Info) Description 01/19/2020 Refill [facility] [address] [place] [address] Tj Duncan MD #[address] [address] Medication Refill Social History Tobacco Use Types [...] on 01-15-20 for #60+0. Pharmacy notified via [employer]. documented in this encounter Plan of Treatment Upcoming Encounters Date Type Department Care Team (Late st Contact Info) Description 10/27/2024 8:15 AM CDT Office Visit [facility] Family [facility] #2 [place] [address] Tj Duncan MD #[address] [address] documented as of this encounter Visit Diagnoses Diagnosis Deep vein thrombophlebitis of left leg (HCC) Phlebitis and thrombophlebitis of other deep vessels of lower extremities documented in this encounter Additional Health Concerns Infection Onset Date Last Indicated Resolved Time COVID - 19 Confirmed 08/15/2020 08/19/2020 021 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 difficile Rule-Out 11/02/2022 11/02/20222022 1:14 PM CDT Assessment Noted Time PHQ-9 Depression Total Score: 0 10/23/19 19 5:00 PM CDT documented as of this encounter Care Teams Class A Regional Truck Driver Relationship Specialty Start Date End Date Tj Duncan MD #[address] [address] PCP - General Family Medicine 05/17/15 Ct, [facility] [place] 08/19/20 Nasir Santos MD #[address] [address] Consulting Physician Colon and Rectal Surgery 01/14/24 documented as of this encounter
--- OUTSIDE RECORDS SUMMARY | 2024-08-13 00:58 | XMS_ITS | Encounter Summary ---
Author Organization [facility] Address [address] [place] [address] Phone Care Team Providers Care Licensed Psychologist Director Name Role Phone Tj Duncan MD Primary Care Provider [phone] Ct, [facility] Unavailable Sylvia vailable Nasir Santos MD Unavailable Reason for Visit * Reason Comments Medication Refill Encounter Details Date Type Department Care Team (Late st Contact Info) Description 09/18/2022 Refill [facility] #2 [place] [address] Tj Duncan MD #[address] [address] Medication Refill Social History Tobacco Use Types [...] order placed on 08/14/2022 10:14 AM Order [id number]: naproxen (NAPROSYN) 500 MG Tablet (For orders [...] [place] 12/15/21 Office Visit Tj Duncan MD [facility] [place] Showing recent visits within past 365 days and meeting all other requirements Today's Visits Date Type Provider Dept 09/18/22 Appointment Ilda Macario APRN, [facility] [place] Showing today's visits and meeting all other requirements Future Appointments No visits were found meeting these conditions. Showing future appointments within next 90 days and meeting all other requirements documented in this encounter Plan of Treatment Upcoming Encounters Date Type Department Care Team (Late st Contact Info) Description 10/27/2024 8:15 AM CDT Office Visit [facility] [address] [place] [address] Tj Duncan MD #2 [facility] [address] [place] [address] documented as of this encounter Visit Diagnoses Not on filedocumented in this encounter Additional Health Concerns Infection Onset Date Last Indicated Resolved Time C. 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
--- OUTSIDE RECORDS SUMMARY | 2024-08-13 00:58 | XMS_ITS | Encounter Summary ---
Author Organization [facility] Address [address] [place] [address] Phone Care Team Providers Care Lining Folder Name Role Phone Tj Duncan MD Primary Care Provider [phone] Ct, [facility] Unavailable Sylvia vailable Nasir Santos MD Unavailable Reason for Visit * Reason Comments Medication Refill Encounter Details Date Type Department Care Team (Late st Contact Info) Description 08/13/2022 Refill [facility] #2 [place] [address] Tj Duncan MD #[address] [address] Medication Refill Social History Tobacco Use Types [...] Dept 06/22/22 Office Visit Tj Duncan MD [facility] [place] 04/11/22 Office Visit Tj Duncan MD [facility] [place] [place] 12/15/21 Office Visit Tj Duncan MD [facility] [place] 09/06/21 Office Visit Aidan Canales APRN, CNP [facility] [place] 08/22/21 Office Visit Aidan Canales APRN, MAG[facility] Showing recent visits within past 365 days and meeting all other requirements Future Appointments No visits were found meeting these conditions. Showing future appointments within next 90 days and meeting all other requirements Passed - No matching NSAID med order in past 45 days No matching medication orders between 06/30/2022 10:10 AM and 08/14/2022 10:10 AM ETING PRODUCTION SPECIALIST documented in this encounter Plan of Treatment Upcoming Encounters Date Type Department Care Team (Late st Contact Info) Description 10/27/2024 8:15 AM CDT Office Visit [facility] Medical [facility] - Family [facility] #2 [place] [address] Tj Duncan MD #[address] [facility] [address] [place] [address] documented as of this encounter Visit Diagnoses Not on filedocumented in this encounter Additional Health Concerns Infection Onset Date Last Indicated Resolved Time C. difficile Rule-Out 11/02/2022 11/02/20222022 1:14 PM CDT Assessment Noted Time PHQ-9 Depression Total Score: 0 06/22/20 3:00 PM MARKETING PRODUCTION SPECIALIST documented as of this encounter Care Teams Lining Folder Relationship Specialty Start Date End Date Tj Duncan MD #[address] [facility] [address] [place] [address] PCP - General Family Medicine 05/17/15 Ct, [facility] [place] 08/19/20 Nasir Santos MD #[address] [facility] [address] [place] [address] Consulting Physician Colon and Rectal Surgery 01/14/24 documented as of this encounter
[2024-08-13] MEDS: LACTATED RINGERS 1,000 ML 30 ML IV CONT (06:35)
[2024-08-13 06:45] VITALS: BP 142/81; PULSE 64; RESP 18; TEMP 36.4; O2SAT 98
--- NOTE | 2024-08-13 06:54 | WPDANESEPPF ---
Anes - Initial Pre Proc Eval Procedure: Operation Date: 08/13/24 07:30 Proposed Procedures p Left Carpal Tunnel Release - Karla Davenport MD Date/Time: 08/13/24 06:54 Surgeon: Karla Davenport MD Pre Op Diagnosis: Left Carpal Tunnel Syndrome Patient Data Age: 64 Gender: M Height: 1.75 m Weight: 130 kg Last Vital Signs Temp 97.6 F 08/04/24 11:03 Pulse 56 L 08/04/24 11:03 Resp 16 08/04/24 11:03 BP 152/76 H 08/04/24 11:21 Pulse Ox 99 08/04/24 11:03 O2 Del Method Room Air 08/04/24 11:03 Allergies Allergy/AdvReac Type Severity Reaction Status Date / Time shellfish derived Allergy Intermediate Hives/nause Verified 08/04/24 10:59 a Home Medications ?Medication ?Instructions ?Recorded ?Confirmed ?Type atorvastatin 40 mg tablet 40 mg PO DAILY 01/18/21 08/04/24 History tamsulosin 0.4 mg capsule (Flomax) 0.4 mg PO HS 09/15/22 08/04/24 History apixaban 5 mg tablet (Eliquis) 5 mg PO Q12H 09/29/23 08/04/24 History acetaminophen 500 mg tablet 1,000 mg PO ONCE PRN pain 08/04/24 08/04/24 History (Acetaminophen Extra Strength) Patient hx anesthesia problems: none Family hx anesthesia problems: none Results Review: All pre-operative results and documents have been reviewed as part of the pre-operative evaluation. [facility] Past Medical History Medical History Psoriasis Gout Arthritis COVID-19 (08/2020) Hyperlipidemia Chronic anticoagulation Deep venous thrombosis Benign prostatic hyperplasia Surgical History Surgical History History of tonsillectomy Status post left foot surgery For tarsal tunnel syndrome. Family History Family History Father Acute myocardial infarction Hypertension Prostate carcinoma Mother Cerebrovascular accident History of blood clots Diabetes mellitus Hypertension Social History Social History Social History: Surrogate medical decision maker: Daisha Lakhani, spouse. Code status: Full code. 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 Hyperlipidemia, suspect LENARD. Informed Consent: The patient's anesthetic plan and its attendant risks and benefits were discussed with the patient/family/POA. Questions were solicited and answers provided to the satisfaction of the patient/family/POA.
--- NOTE | 2024-08-13 07:20 | WPDHPUPDATE1 ---
History and Physical Update Update Date/Time: 08/13/24 07:20 History and Physical has been reviewed, including an updated exam of the patient. There are NO changes in the patient's condition. Risks, benefits, and alternatives have been discussed and questions answered. Patient agrees to proceed with procedure.
[2024-08-13] MEDS: ceFAZolin 3 GM/D5W 100 ML 100 ML IVPB (07:27)
[2024-08-13] MEDS: BUPivacaine HCL 0.5% PF 30 ML VIAL 10 ML INFILTRATE (07:44)
[2024-08-13] MEDS: BACITRACIN OINTMENT 15 GM TUBE 1 APPLIC TOPICAL (07:45)
--- NOTE | 2024-08-13 08:06 | W.PM.PROC2 ---
Procedure Note - Detailed Date of Procedure 08/13/24 Pre-op Diagnosis Left Carpal Tunnel Syndrome Post-op Diagnosis Same Procedure Performed Left carpal tunnel release Surgeon Karla Davenport MD Refinery Pipeline Operator Andreas Anesthesia [facility] Description of Procedure The patient was brought to the operating room where anesthesia was induced. The patient remained supine on the bed with the left arm extended onto an armboard. A straight incision on the ulnar side of the thenar crease in line with the anterior webspace between the third and fourth finger was planned. The hand and arm were prepped and draped in usual sterile fashion. Time-out was performed. The incision was injected local anesthetic. A 15 blade scalpel was used to open the incision. The bipolar was used to obtain hemostasis. A Metzenbaum scissor was used to bluntly separate the subcutaneous tissue until the flexor retinaculum was visualized. A self-retaining retractor was placed. A new 15 blade scalpel was then used to slowly open the flexor retinaculum, first extending distally until fat was identified. I then focused on the proximal opening of the carpal tunnel. Under direct visualization and using Metzenbaum scissors, the flexor retinaculum was opened proximally until the carpal tunnel was felt to be fully decompressed. The extent of the opening was checked again to confirm that the nerve was fully decompressed. The surgical site was copiously irrigated. Hemostasis was verified with the bipolar. The skin was closed with 3-0 nylon vertical mattress sutures which was then dressed with fluff gauze, Kerlix, and an Kana bandage. The arm was placed into a sling. The patient was awakened from anesthesia and transferred to the PACU without incident. Billing code: 30370 Estimated Blood Loss 5 Drains No Packing No Pathology None sent Complications None Condition Stable Disposition PACU [facility] Billing Surgery - Charge Forward: Surgery Billing
[2024-08-13 08:07] VITALS: BP 101/52; PULSE 60; RESP 16; O2SAT 97
[2024-08-13 08:30] VITALS: BP 106/64; PULSE 55; RESP 20
[2024-08-13 09:00] VITALS: BP 117/78; PULSE 55; RESP 20
== END 2024-08-13 09:20 | disposition home or self-care (01) ==
PROVIDERS: PCP Internal Medicine; Visit Provider Neurological Surgery
PROC: (CPT 64721; principal; 2024-08-13 07:30)
DX: G56.02 Carpal tunnel syndrome, left upper limb (principal); E78.5 Hyperlipidemia, unspecified; N40.0 Benign prostatic hyperplasia without lower urinary tract symptoms; L40.9 Psoriasis, unspecified; M19.90 Unspecified osteoarthritis, unspecified site; E66.01 Morbid (severe) obesity due to excess calories; Z68.41 Body mass index [BMI] 40.0-44.9, adult; Z79.01 Long term (current) use of anticoagulants; Z98.890 Other specified postprocedural states; Z86.718 Personal history of other venous thrombosis and embolism; Z80.42 Family history of malignant neoplasm of prostate; Z82.49 Family history of ischemic heart disease and other diseases of the circulatory system
CPT/HCPCS: 64721; A4565; A9270; J0690; J1100; J2003; J2250; J2405; J2704; J3010; J7120

== ENCOUNTER 2024-12-04 11:04 | Outpatient (CLI) | payer OTHER, SELFPAY ==
--- NOTE | ~2024-12-04 | XR_ITS ---
AP and lateral views of the right hip Clinical history: Pain Findings: No acute fracture or dislocation is seen. Osseous alignment is anatomic. Bilateral hip and SI joint spaces are preserved. Soft tissues are unremarkable. Impression: No significant abnormality is seen. Reviewed, dictated and finalized at location . Impression: No significant abnormality is seen.
--- OUTSIDE RECORDS SUMMARY | 2024-12-04 12:07 | XMS_ITS | Encounter Summary ---
Author Organization [facility] Address [address] [place] [address] Phone Care Team Providers Care Assemblyman Or Woman Name Role Phone Tj Duncan MD Primary Care Provider [phone] Ct, [facility] Unavailable Sylvia vailable Nasir Santos MD Unavailable Reason for Visit * Reason Comments Medication Refill Encounter Details Date Type Department Care Team (Late st Contact Info) Description 09/18/2022 Refill [facility] #2 [place] [id number] Tj Duncan MD #[address] [address] Medication Refill Social History Tobacco Use Types [...] order placed on 08/14/2022 10:14 AM Order [id number]: naproxen (NAPROSYN) 500 MG Tablet (For orders [...] Bazan 12/15/21 Office Visit Tj Duncan MD [facility] Showing recent visits within past 365 days and meeting all other requirements Today's Visits Date Type Provider Dept 09/18/22 Appointment Ilda Macario APRN, MAGNO [facility] Showing today's visits and meeting all other requirements Future Appointments No visits were found meeting these conditions. Showing future appointments within next 90 days and meeting all other requirements documented in this encounter Plan of Treatment Upcoming Encounters Date Type Department Care Team (Late st Contact Info) Description 12/09/2024 5:15 PM CDT Office Visit [facility] [address] [place] [address] Tj Duncan MD #2 [facility] [address] [place] [address] documented as of this encounter Visit Diagnoses Not on filedocumented in this encounter Additional Health Concerns Infection Onset Date Last Indicated Resolved Time C. difficile Rule-Out 11/02/2022 11/02/20222022 1:14 PM CDT Respiratory Rule-Out 09/08/2024 09/08/2024 025 2:20 PM CDT COVID - 19 09/08/2024 09/08/2024 09/08/2024 2:20 PM CDT Assessment Noted Time PHQ-9 Depression Total Score: 0 06/22/20 3:00 PM RISK MODELER documented as of this encounter Care Teams Assemblyman Or Woman Relationship Specialty Start Date End Date Tj Duncan MD #2 [facility] [address] [place] [address] PCP - General Family Medicine 05/17/15 Ct, [facility] [place] 08/19/20 Nasir Santos MD #2 [facility] [address] [place] [address] Consulting Physician Colon and Rectal Surgery 01/14/24 documented as of this encounter
--- OUTSIDE RECORDS SUMMARY | 2024-12-04 12:07 | XMS_ITS | Encounter Summary ---
Author Organization [facility] Address [address] [place] [address] Phone Care Team Providers Care Drywall Stripper Name Role Phone Tj Duncan MD Primary Care Provider [phone] Ct, Acute Covid At Home Care Unavailable Sylvia vailable Nasir Santos MD Unavailable Reason for Visit * Reason Comments Medication Refill Encounter Details Date Type Department Care Team (Late st Contact Info) Description 08/05/2022 Refill [facility] #2 [place] [phone] Tj Duncan MD #[address] [address] Medication Refill Social History Tobacco Use Types [...] 08/22/21 Office Visit Aidan Canales APRN, MAGNO [facility] Showing recent visits within past 365 days and meeting all other requirements Future Appointments No visits were found meeting these conditions. Showing future appointments within next 90 days and meeting all other requirements RMAN CEO documented in this encounter Plan of Treatment Upcoming Encounters Date Type Department Care Team (Late st Contact Info) Description 12/09/2024 5:15 PM CDT Office Visit [facility] - Family Medicine - [place] [address] [place] [address] Tj Duncan MD #[address] [address] documented as of this encounter Visit Diagnoses Not on filedocumented in this encounter Additional Health Concerns Infection Onset Date Last Indicated Resolved Time C. difficile Rule-Out 11/02/2022 11/02/20222022 1:14 PM CDT Respiratory Rule-Out 09/08/2024 09/08/2024 025 2:20 PM CDT COVID - 19 09/08/2024 09/08/2024 09/08/2024 2:20 PM CDT Assessment Noted Time PHQ-9 Depression Total Score: 0 06/22/20 3:00 PM CHAIRMAN CEO documented as of this encounter Care Teams Drywall Stripper Relationship Specialty Start Date End Date Tj Duncan MD #2 [facility] [address] [place] [address] PCP - General Family Medicine 05/17/15 Ct, [facility] [place] 08/19/20 Nasir Santos MD #2 [facility] [address] [place] [address] Consulting Physician Colon and Rectal Surgery 01/14/24 documented as of this encounter
--- OUTSIDE RECORDS SUMMARY | 2024-12-04 12:07 | XMS_ITS | Encounter Summary ---
Author Organization [facility] Address [address] [place] [address] Phone Care Team Providers Care Marketing Researcher Name Role Phone Tj Duncan MD Primary Care Provider [phone] Ct, Acute Covid At Home Care Unavailable Sylvia vailable Nasir Santos MD Unavailable Reason for Visit * Reason Comments Medication Refill Encounter Details Date Type Department Care Team (Late st Contact Info) Description 08/13/2022 Refill [facility] #2 [place] [phone] Tj Duncan MD #[address] [address] Medication Refill Social History Tobacco Use Types [...] Dept 06/22/22 Office Visit Tj Duncan MD [facility] 04/11/22 Office Visit Tj Duncan MD [facility] 12/15/21 Office Visit Tj Duncan MD [facility] 09/06/21 Office Visit Aidan Canales APRN, CNP [facility] 08/22/21 Office Visit Aidan Canales APRN, MAGNO [facility] Showing recent visits within past 365 days and meeting all other requirements Future Appointments No visits were found meeting these conditions. Showing future appointments within next 90 days and meeting all other requirements Passed - No matching NSAID med order in past 45 days No matching medication orders between 06/30/2022 10:10 AM and 08/14/2022 10:10 AM R COATER documented in this encounter Plan of Treatment Upcoming Encounters Date Type Department Care Team (Late st Contact Info) Description 12/09/2024 5:15 PM CDT Office Visit [facility] #2 [place] [address] Tj Duncan MD #2 [facility] [address] [place] [address] documented as of this encounter Visit Diagnoses Not on filedocumented in this encounter Additional Health Concerns Infection Onset Date Last Indicated Resolved Time C. difficile Rule-Out 11/02/2022 11/02/20222022 1:14 PM CDT Respiratory Rule-Out 09/08/2024 09/08/2024 025 2:20 PM CDT COVID - 19 09/08/2024 09/08/2024 09/08/2024 2:20 PM CDT Assessment Noted Time PHQ-9 Depression Total Score: 0 06/22/20 3:00 PM VAPOR COATER documented as of this encounter Care Teams Marketing Researcher Relationship Specialty Start Date End Date Tj Duncan MD #2 [facility] [address] [place] [address] PCP - General Family Medicine 05/17/15 Ct, [facility] [place] 08/19/20 Nasir Santos MD #2 [facility] [address] [place] [address] Consulting Physician Colon and Rectal Surgery 01/14/24 documented as of this encounter
--- OUTSIDE RECORDS SUMMARY | 2024-12-04 12:07 | XMS_ITS | Encounter Summary ---
Author Organization [facility] Address [address] [place] [address] Phone Care Team Providers Care Health Economist Name Role Phone Tj Duncan MD Primary Care Provider Ct, Acute Covid At Home Care Unavailable Sylvia vailable Nasir Santos MD Unavailable Reason for Visit * Reason Comments Medication Refill Encounter Details Date Type Department Care Team (Late st Contact Info) Description 01/19/2020 Refill [facility] [address] [place] [address] Tj Duncan MD #[address] [address] Medication Refill Social History Tobacco Use Types [...] on 01-15-20 for #60+0. Pharmacy notified via [employer]. documented in this encounter Plan of Treatment Upcoming Encounters Date Type Department Care Team (Late st Contact Info) Description 12/09/2024 5:15 PM CDT Office Visit [facility] Family [facility] #2 [place] [address] Tj Duncan MD #2 [facility] [address] [place] [address] documented as of this encounter Visit Diagnoses Diagnosis Deep vein thrombophlebitis of left leg (HCC) Phlebitis and thrombophlebitis of other deep vessels of lower extremities documented in this encounter Additional Health Concerns Infection Onset Date Last Indicated Resolved Time COVID - 19 Confirmed 08/15/2020 08/19/2020 021 12:18 AM INSPECTOR AUTOMATIC TYPEWRITER C. difficile Rule-Out 11/02/2022 11/02/20222022 1:14 PM CDT Respiratory Rule-Out 09/08/2024 09/08/2024 025 2:20 PM CDT COVID - 19 09/08/2024 09/08/2024 09/08/2024 2:20 PM CDT Assessment Noted Time PHQ-9 Depression Total Score: 0 10/23/19 19 5:00 PM CDT documented as of this encounter Care Teams Health Economist Relationship Specialty Start Date End Date Tj Duncan MD #2 [facility] [address] [place] [address] PCP - General Family Medicine 05/17/15 Ct, Acute [facility] At Home Care [place] 08/19/20 Nasir Santos MD #2 [facility] [address] [place] [address] Consulting Physician Colon and Rectal Surgery 01/14/24 documented as of this encounter
--- OUTSIDE RECORDS SUMMARY | 2024-12-04 12:07 | XMS_ITS | Encounter Summary ---
Author Organization [facility] Address [address] [place] [address] Phone Care Team Providers Care Coal Grader Name Role Phone Tj Duncan MD Primary Care Provider [phone] Ct, Acute Covid At Home Care Unavailable Sylvia vailable Nasir Santos MD Unavailable Reason for Visit * Reason Comments Medication Refill Encounter Details Date Type Department Care Team (Late st Contact Info) Description 09/09/2023 Refill [facility] #2 [place] [phone] Tj Duncan MD #[address] [address] Medication Refill Social History Tobacco Use Types [...] the past year No results found for: SODIUM, POTASSIUM, CHLORIDE, CO2VEN, ANIONGAP, GLUCOSE, BUN, CREATININE, BCRATIO8, TOTALPROTEIN, ALBUMIN, AGRT, AGRATIO, CALCIUM, TBIL, SGOTAST, SGPTALT, ALKALINEPHO, GFRNA, GFRA, GFRES, CMPREQFAST, CMPFAST Failed - Creatinine and GFR on record in the past year No results found for: CREATININE, GFRES No results found for: GFRNA Passed - Visit with relevant provider in past 12 months or upcoming 90 days Recent Visits Date Type Provider Dept 11/02/22 Office Visit [facility] 09/18/22 Office Visit Ilda Macario APRN, BOTTLE BOOTH ATTENDANT [facility] Showing recent visits within past 365 days and meeting all other requirements Future Appointments No visits were found meeting these conditions. Showing future appointments within next 90 days and meeting all other requirements documented in this encounter Plan of Treatment Upcoming Encounters Date Type Department Care Team (Late st Contact Info) Description 12/09/2024 5:15 PM CDT Office Visit [facility] - Family [facility] #2 [place] [address] Tj Duncan MD #[address] [address] documented as of this encounter Visit Diagnoses Diagnosis Blood clotting disorder (HCC) Other and unspecified coagulation defects documented in this encounter Additional Health Concerns Infection Onset Date Last Indicated Resolved Time Respiratory Rule-Out 09/08/2024 09/08/2024 025 2:20 PM CDT COVID - 19 09/08/2024 09/08/2024 09/08/2024 2:20 PM CDT Assessment Noted Time PHQ-9 Depression Total Score: 0 06/22/20 22 3:00 PM PLUG GROWER documented as of this encounter Care Teams Coal Grader Relationship Specialty Start Date End Date Tj Duncan MD #[address] [address] PCP - General Family Medicine 05/17/15 Ct, Acute [facility] Home [facility] [place] 08/19/20 Nasir Santos MD #[address] [address] Consulting Physician Colon and Rectal Surgery 01/14/24 documented as of this encounter
--- OUTSIDE RECORDS SUMMARY | 2024-12-04 12:07 | XMS_ITS | Clinical Summary ---
Author Organization [facility] Address #1 [place] [address] Phone Care Team Providers Care Feeder Operator Name Role Phone Tj Duncan MD Primary Care Provider [phone] Ct, Acute Covid At Home Care Unavailable Sylvia Nasir Johnson MD Unavailable Allergies Active Allergy Reactions Criticality Noted Date Comments Shellfish Allergy Hives,Nausea Medium 06/27/2015 Shellfish-Derived Products Hives,Vomiting 08/22 Rivaroxaban Other (see Comments) 12/15/2021 dizziness Medications dicyclomine (BENTYL) 10 MG Capsule TAKE 1 CAPSULE BY MOUTH THREE TIMES A DAY 270 Capsule 1 01/30/20 23 Active Additional Information Patient not taking.Reported on 09/08/2024 triamcinolone (KENALOG) 0.025 % Ointment Application Site: apply daily to left calf (Description and Location) 80 g 1 10/24/19 24 Active Additional Information Patient not taking.Reported on 09/08/2024 Eliquis 5 MG TabletIndications: Blood clotting disorder (HCC) TAKE 1 TABLET BY MOUTH 2 TIMES DAILY. INDICATIONS: PREVENTION OF UNWANTED CLOT IN VEINS 180 Tablet 1 05/17/20 24 Active atorvastatin (LIPITOR) 40 MG TabletIndications: Hyperlipidemia, unspecified hyperlipidemia type Take 1 Tablet by mouth daily. 90 Tablet 1 09/09/19 25 Active tamsulosin (FLOMAX) 0.4 MG CapsuleIndications :Benign non-nodular prostatic hyperplasia with lower urinary tract symptoms Take 1 Capsule by mouth daily. 90 Capsule 4 09/09/19 25 Active Active Problems Problem Noted Date Diagnosed Date Benign non-nodular prostatic hyperplasia with lower urinary tract symptoms 08/22/2016 Colon cancer screening 08/22/2016 Depression 01/21/2016 Vertigo 10/21/2015 Blood clotting disorder 06/01/2015 Deep vein thrombophlebitis of left leg 5 Encounters Date Type Department Care Team Description 09/15/2024 Results Follow-Up [facility] #2 [place] [address] Dayanara Armando APRN, CNP XR CHEST 2 VIEWS 09/08/2024 2:45 PM CDT - 09/08/2024 11:59 PM CDT Hospital Encounter [facility] [address] [place] [address] Dayanara Armando APRN, CNP Discharge Disposition: Discharged to home or Selfcare 09/08/2024 1:45 PM CDT Office Visit [facility] #2 [place] [address] Dayanara Armando APRN, CNP Upper respiratory tract infection, unspecified type (Primary Dx); Congestion of nasal sinus; Benign non-nodular prostatic hyperplasia with lower urinary tract symptoms; Hyperlipidemia, unspecified hyperlipidemia type; Productive cough Discharge Disposition: Discharged to home or Selfcare 09/08/2024 Travel 09/08/2024 Nurse Triage [facility] [address] [place] [address] Tj Duncan MD Advice Only; Sinus Problem from Last 3 Months Immunizations Immunization Administration [...] Never Smokeless Tobacco: Never Tobacco Cessation:Counseling Given: No Alcohol Use Standard Drinks/Week Comments Yes 8 [...] Sign Reading Time Taken Comments Blood Pressure 114/80 09/08/2024 1:56 PM CDT Pulse 102 09/08/2024 1:56 PM CDT Temperature 36.3 C (97.3 F) 09/08/2024 1:56 PM CDT Respiratory Rate 14 09/08/2024 1:56 PM CDT Oxygen Saturation 93% 09/08/2024 1:56 PM CDT Inhaled Oxygen Concentration - - Weight 127.1 kg (280 lb 1.6 oz) 09/08/2024 1:56 PM CDT Height 175.3 cm (5' 9) 09/08/2024 1:56 PM CDT Body Mass Index 41.36 09/08/2024 1:56 PM CDT Plan of Treatment Upcoming Encounters Date Type Department Care Team (Late st Contact Info) Description 12/09/2024 5:15 PM CDT [facility] Visit [facility] #[address] [place] [address] Tj Duncan MD #[address] [address] Health Maintenance Due Date Last Done Comments Cologuard 2006 Immunochemical Fecal Occult Blood 2006 Zoster Immunization (1 of 2) 2011 Pneumococcal Immunization (50+ years) (2 of 2 - PCV) 05/18/2016 05/18/2015 Respiratory Syncytial Virus (RSV) Immunization (Adult) (1 - Risk 60-74 years 1-dose series) 2021 SARS-COV-2 Immunization (3 - season) 2024 07/25/2021, 11/30/2020 Influenza Immunization (Season Ended) 2025 04/11/2022, 06/16/2021, 04/05/2018, Additional history exists Colonoscopy 03/13/2029 03/13/2024, 02/23, 02/09/2017 Colorectal Cancer Screening 03/13/2029 Td Immunization Every 10 Years (Adults With 1 Tdap) 02/09/2030 02/10/2020 Pneumococcal Immunization Combined Discontinued 05/18/2015 Hepatitis C Virus (HCV) Screening Completed 10/24/2023 PSA Discussion Completed 10/24/2023, 05/27, 06/20/2021, Additional history exists Hepatitis B Immunization Aged Out No longer eligible based on patient's age to complete this topic Human Papillomavirus (HPV) Immunization Aged Out No longer eligible based on patient's age to complete this topic Meningococcal Immunization (ACWY) Aged Out No longer eligible based on patient's age to complete this topic Rotavirus Immunization Aged Out No lo nger eligible based on patient's age to complete this topic Procedures Procedure Name Priority Date/Time Associated Diagnosis Comments XR CHEST 2 VIEWS Routine 09/08/2024 3:03 PM CDT Upper respiratory tract infection, unspecified type Productive cough POC INFLUENZA A AND B BY MOLECULAR Routine 09/08/2024 2:14 AM CDT Congestion of nasal sinus POC SARS-COV-2 BY MOLECULAR Routine 09/08/2024 2:01 AM CDT Congestion of nasal sinus HEPATITIS C ANTIBODY Routine 10/24/2023 Need for hepatitis C screening test PSA SCREEN Today 10/24/2023 Screening for prostate cancer from Last 3 Months or Most Recently Relevant to Health Maintenance Results * XR CHEST 2 VIEWS (09/08/2024 3:03 PM CDT) Anatomical Region Laterality Modality Chest N/A Digital Radiogra phy 09/12/2024 10:1 2 PM CDT Impressions 09/12/2024 10:14 PM CDT IMPRESSION: New airspace opacities in the left mid to lower lung field and medial right lung base possibly indicating bilateral pneumonias. Please correlate with clinical findings. Consider follow-up chest film or possibly chest CT to further delineate. Narrative 09/12/2024 10:14 PM CDT EXAM DESCRIPTION: XR CHEST 2 VIEWS REASON FOR STUDY: pt c/o SOB and productive cough x 10 day with no improvement. no hx of surgery TECHNIQUE: PA and lateral radiographic view(s) of the chest. COMPARISON: No comparison. FINDINGS: LUNGS: There is new airspace opacity in the left mid to lower lung field and in the medial right lung base possibly indicating bilateral pneumonias. Please correlate with clinical findings. No pleural effusion or pneumothorax. HEART/MEDIASTINUM: Cardiac silhouette normal in size. Mediastinal and hilar contours appear normal. LINES/TUBES: None. BONES: No acute osseous abnormality. THIS IS AN ELECTRONICALLY VERIFIED FINAL REPORT 09/12/2024 10:12 PM - Electronically signed by Raulito Cordon M.D. LC: JORDYN Report ID: [id number] Reading Location: [id number] Procedure Note Mari Cordon MD - 09/12/2024 EXAM DESCRIPTION: XR CHEST 2 VIEWS REASON FOR STUDY: pt c/o SOB and productive cough x 10 day with no improvement. no hx of surgery TECHNIQUE: PA and lateral radiographic view(s) of the chest. COMPARISON: No comparison. FINDINGS: LUNGS: There is new airspace opacity in the left mid to lower lung field and in the medial right lung base possibly indicating bilateral pneumonias. Please correlate with clinical findings. No pleural effusion or pneumothorax. HEART/MEDIASTINUM: Cardiac silhouette normal in size. Mediastinal and hilar contours appear normal. LINES/TUBES: None. BONES: No acute osseous abnormality. THIS IS AN ELECTRONICALLY VERIFIED FINAL REPORT 09/12/2024 10:12 PM - Electronically signed by Raulito Cordon M.D. LC: JORDYN Report ID: [id number] Reading Location: [id number] IMPRESSION: New airspace opacities in the left mid to lower lung field and medial right lung base possibly indicating bilateral pneumonias. Please correlate with clinical findings. Consider follow-up chest film or possibly chest CT to further delineate. September Nazia Armando APRN, CNP IMG DIAGNOSTIC ORDERABLES Final Result * POC INFLUENZA A AND B BY MOLECULAR (09/08/2024 2:14 AM CDT) INFLUENZA A RNA Negative Negative, Invalid INFLUENZA B RNA Negative Negative, Invalid PROCEDURE CONTROL Valid 09/08/2024 2:14 AM CDT Result [facility] September N Tr CHAVARRIA CNP POINT OF CARE TESTING ([place] PATRICKAL) Final Result * POC SARS-COV-2 BY MOLECULAR (09/08/2024 2:01 AM CDT) SARSCOV2 Negative Negative, INVALID PROCEDURE CONTROL Valid 09/08/2024 2:01 AM CDT September Nazia Armando APRN, CNP POINT OF CARE TESTING ([place] NUAL) Final Result * PSA SCREEN (10/24/2023) Blood 10/24/2023 Tj Duncan MD CHEMISTRY ORDERABLES Final Re sult * HEPATITIS C ANTIBODY (10/24/2023) Blood 10/24/2023 Tj Duncan MD CHEMISTRY ORDERABLES Final Re sult from Last 3 Months or Most Recently Relevant to [place] [address] [employer] Care Teams Feeder Operator Relationship Specialty Start Date End Date Tj Duncan MD #2 [facility] [address] [place] [address] PCP - General Family Medicine 05/17/15 Ct, Acute [facility] Home [facility] [place] 08/19/20 Nasir Santos MD #2 [facility] [address] [place] [address] Consulting Physician Colon and Rectal Surgery 01/14/24
--- OUTSIDE RECORDS SUMMARY | 2024-12-04 12:07 | XMS_ITS | Encounter Summary ---
Author Organization [facility] Address [address] [facility] [place] [address] Phone Care Team Providers Care Plate Colorer Name Role Phone Tj Duncan MD Primary Care Provider [phone] Ct[facility] Unavailable Sylvia vailable Nasir Santos MD Unavailable Reason for Visit * Reason Onset Date Comments Advice Only 09/08/2024 Sinus Problem 09/08/2024 Encounter Details Date Type Department Care Team (Late st Contact Info) Description 09/08/2024 Nurse Triage [facility] [address] [place] [address] Tj Duncan MD [address] [id number] Advice Only; Sinus Problem Social History Tobacco Use Types Packs/Day Years [...] encounter Miscellaneous Notes * Telephone Encounter - Ro Reardon RN - 09/08/2024 9:34 AM CDT SITUATION: sinus pain BACKGROUND: Patient contacting PCP office. ASSESSMENT: Symptom Description / Location: Started 10 days with a cold getting worse Home testing for COVID was negative Phlegm and drainage is green Having facial pain and congestion headaches Patient has been taking Nyquil to help with sleep but only last 4 hours Denies fevers this week but noted some last week Feels bad tired Patient states couldn't talk yesterday and today voice continues to be hoarse Denies shortness of breath Patient states that has some redness and feeling sore on cheeks, nose is sore from blowing nose Pain: Moderate Fever: Denies fever. Treatment / Response: tylenol 1000mg as needed with some relief. RECOMMENDATION: Patient lives 45 minutes away and will wait for OV for later today. Caller agreeable to disposition: go to office now. Caller requesting appointment. Care advice provided per triage guideline. Caller verbalized understanding. Patient unable to get an appointment withPCP or care team within disposition. Scheduled with alternate provider in the office. All Patient Appointments Date & Time Provider Department Dept Phone 09/08/2024 1:45 PM [facility], September [facility] - [facility] Medicine - [place] [phone] Encounter routed to provider high priority to notify. Patient has not accessed recently - See care advice and disposition for Guideline. First positive answer recorded, all responses to prior questions were negative. If symptoms increase, change or if new symptoms develop, call your health care provider or call back. Recommendations were based on caller information and is not a diagnosis. Verified and reviewed all triage information with caller. Reason for Disposition Redness or swelling on the cheek, forehead, or around the eye Protocols used: Sinus Pain or [id number] * Telephone Encounter - Esther Martinez - 09/08/2024 9:31 AM CDT Symptoms: Sinus Symptoms, Hoarseness, Chest Congestion Outcome: Warm transfer to an emergent RN NOW! Reason: Any trouble breathing through the mouth The caller accepted this outcome. documented in this encounter Plan of Treatment Upcoming Encounters Date Type Department Care Team (Late st Contact Info) Description 12/09/2024 5:15 PM CDT Office Visit [facility] [address] [place] [address] Tj Duncan MD #[address] [address] documented as of this encounter Visit Diagnoses Not on filedocumented in this encounter Additional Health Concerns Infection Onset Date Last Indicated Resolved Time Respiratory Rule-Out 09/08/2024 09/08/2024 025 2:20 PM CDT COVID - 19 09/08/2024 09/08/2024 09/08/2024 2:20 PM CDT Assessment Noted Time PHQ-9 Depression Total Score: 0 10/24/19 8:07 AM CDT documented as of this encounter Care Teams Plate Colorer Relationship Specialty Start Date End Date Tj Duncan MD #2 [facility] [address] [place] [address] PCP - General Family Medicine 05/17/15 [facility] [place] 08/19/20 Nasir Santos MD #[address] [address] Consulting Physician Colon and Rectal Surgery 01/14/24 documented as of this encounter
== END 2024-12-04 11:05 | disposition home or self-care (01) ==
PROVIDERS: PCP Internal Medicine; Visit Provider Neurological Surgery
DX: M25.551 Pain in right hip (principal)
CPT/HCPCS: 73502